=== PATIENT | female | born 1980 | race Caucasian/White ===

== ENCOUNTER → 2016-07-02 | Outpatient (CLI) | payer OTHER ==
[~2016-07-02] MED LIST: B-COTAB18 PO; CLX20 PO; ECHINACEA PO; LORA-741 PO; METH500T37 PO; MISCCAP80 PO; MULT-506 PO; OMEG10007 PO; POLY335019 PO; TRAZ50TA35 PO
== END | disposition home or self-care (01) ==
LOC: C.LABBC 10:44
PROVIDERS: ATTEND Family Medicine
DX: R53.83 Other fatigue (principal)

== ENCOUNTER → 2016-10-22 | Outpatient (CLI) | payer OTHER ==
--- NOTE | 2016-10-22 18:15 | DIAGNOSTIC IMAGING REPORT ---
KEEGAN CLINICAL HISTORY: K59.00 Constipation pain COMPARISON STUDY: No previous studies for comparison. FINDINGS: Mild increase in fecal load throughout the colon. No evidence for fecal impaction. No significant small bowel distention. IMPRESSION: Mild increase in fecal load throughout the colon. A component of fecal stasis may be considered Electronically signed by: Wang Dawson M.D. 10/22/2016 6:13 PM Dictated Date/Time: 10/22/2016 6:13 PM
== END | disposition home or self-care (01) ==
LOC: C.RAD 17:46
PROVIDERS: ATTEND Registered Nurse
DX: K59.00 Constipation, unspecified (principal)

== ENCOUNTER → 2017-08-12 | Outpatient (CLI) | payer OTHER ==
[2017-08-12 16:44] LABS: BASO % 0.3 %; BASO ABS # 0.02 K/uL (0-0.2); EOS % 1.4 %; EOS ABS # 0.08 K/uL (0-0.5); HEMOGLOBIN 13.5 g/dL (12.0-16.0); IG# 0.01 K/uL (0.00-0.02); LYMPH % 30.5 %; LYMPH ABS # 1.76 K/uL (1.2-3.4); MEAN CORPUSCULAR HEMOGLOBIN 32.5 pg (25-34); MEAN CORPUSCULAR HGB CONC 34.6 g/dl (32-36); MEAN PLATELET VOLUME 9.6 fL (7.4-10.4); MONO % 5.2 %; NEUT % 62.4 %; PLATELET COUNT 214 K/uL (130-400); RED CELL DISTRIBUTION WIDTH CV 12.6 % (11.5-14.5); RED CELL DISTRIBUTION WIDTH SD 43.3 fL (36.4-46.3); WHITE BLOOD COUNT 5.77 K/uL (4.8-10.8)
[2017-08-12 17:14] LABS: ALBUMIN 3.5 gm/dl (3.4-5.0); ALKALINE PHOSPHATASE 35 U/L (45-117); ALT/SGPT 13 U/L (12-78); AST/SGOT 14 U/L (15-37); BLOOD UREA NITROGEN 13 mg/dl (7-18); CALCIUM 8.7 mg/dl (8.5-10.1); CARBON DIOXIDE 29 mmol/L (21-32); GLUCOSE 151 mg/dl (70-99); POTASSIUM 3.8 mmol/L (3.5-5.1); SODIUM 136 mmol/L (136-145); TOTAL PROTEIN 7.2 gm/dl (6.4-8.2)
[2017-08-15 16:44] LABS: EBV EARLY ANTIGEN AB < 9.00 U/ML
== END | disposition home or self-care (01) ==
LOC: C.LABBC 13:57
PROVIDERS: ATTEND Physician Assistant Medical
DX: R53.83 Other fatigue (principal); B34.9 Viral infection, unspecified

== ENCOUNTER → 2017-08-19 | Outpatient (CLI) | payer OTHER ==
--- NOTE | 2017-08-27 08:10 | CODING QUERY NO DIAGNOSIS ---
TREATMENT RENDERED WITHOUT A DIAGNOSIS Hyun PA, To promote full compliance with coding requirements relating to patient care, physician participation is requested in all cases of mixer helper uncertainty. Please assist us with providing a diagnosis/symptom for the test(s) below: A diagnosis/symptom was not documented on your Order. A valid diagnosis/symptom is required to bill all insurances. Please remember that we are unable to code a diagnosis of rule out, probable, possible, questionable, or suspected. Tests that require a diagnosis: * GLYCATED HEMOGLOBIN DIAGNOSIS: * HA1C RESULT <7.0% DIAGNOSIS: DATE OF SERVICE: 08/19/17 Provider Signature: Date: Thank you [facility] Information Management Once completed, please kindly fax back to [phone] For questions please call [phone]
== END | disposition home or self-care (01) ==
LOC: C.LABBC 14:44
PROVIDERS: ATTEND Physician Assistant Medical
DX: R50.9 Fever, unspecified (principal); R73.9 Hyperglycemia, unspecified; M54.5 Low back pain; R53.83 Other fatigue

== ENCOUNTER → 2017-08-25 | Outpatient (CLI) | payer OTHER ==
[~2017-08-25] MED LIST changes: +OPTIRAY 320 IV PRN
--- NOTE | 2017-08-25 10:46 | DIAGNOSTIC IMAGING REPORT ---
ABD/PELVIS IV AND ORAL CONT CLINICAL HISTORY: 37 years-old Female presenting with R10.9 Abdominal pain, unspecified abdominal ahgnpkhmU21.09 Chron, constipation. TECHNIQUE: Multidetector CT of the abdomen and pelvis was performed after the administration of oral and intravenous contrast. IV contrast: 94 mL of Optiray 320. A dose lowering technique was used consistent with the principles of ALARA (as low as reasonably achievable). COMPARISON: None. CT DOSE (mGy.cm): The estimated cumulative dose is 271.39 mGy.cm. 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 Lung bases: Lungs and pleural spaces clear. Normal heart size. No pericardial or pleural effusion. Liver: Normal morphology. No liver lesion. Patent hepatic vasculature. Biliary: No intrahepatic or extrahepatic biliary ductal dilatation. Normal gallbladder. Pancreas: Normal. Spleen: Normal. Adrenal glands: Normal. Kidneys and ureters: Normal. No hydronephrosis. Bladder: Normal. Pelvic organs: Uterus and ovaries normal. Bowel: Moderate stool burden throughout the colon from the level of the hepatic flexure to the rectum. The appendix is not visualized though no inflammatory changes evident in the right lower quadrant. No bowel obstruction. Peritoneal cavity: No free fluid or intraperitoneal gas. Lymph nodes: No enlarged lymph nodes in the abdomen or pelvis. Vasculature: Aorta and IVC patent and normal in caliber. Abdominal wall: Normal. Musculoskeletal: Normal. IMPRESSION: 1. Findings consistent with constipation. No acute intra-abdominal pathology. Electronically signed by: Felix Tracy M.D. 08/25/2017 10:45 AM Dictated Date/Time: 08/25/2017 10:39 AM
== END | disposition home or self-care (01) ==
LOC: C.CTS 10:12
PROVIDERS: ATTEND Physician Assistant Medical
DX: K59.09 Other constipation (principal); R50.9 Fever, unspecified; R10.9 Unspecified abdominal pain

== ENCOUNTER 2023-05-14 08:08 | Inpatient (IN) ==
[2023-05-14] MEDS ORDERED: LACTATED RINGER'S 1,000 ML IV PRN (08:19)
[2023-05-14] MEDS ORDERED: OXYTOCIN 30 UNITS/NSS 30 UNITS/500 ML BAG IV PRN ×2 (08:19→14:45)
[2023-05-14] MEDS ORDERED: LIDOCAINE 1% LOCAL 20 ML VIAL INFIL PRN (08:19)
[2023-05-14] MEDS ORDERED: BUPIVACAINE 0.25% PF 30 ML VIAL ONE (08:25)
[2023-05-14] MEDS ORDERED: SODIUM CHLORIDE 0.9% PF INJ 10 ML VIAL ONE (08:25)
[2023-05-14] MEDS ORDERED: ePHEDrine sulfate 50 MG/ML AMP ONE (08:25)
[2023-05-14] MEDS ORDERED: LIDOCAINE 2%/EPINEPHRINE 1:200,000 20 ML PF ONE (08:25)
[2023-05-14] MEDS ORDERED: fentANYL 2 MCG/ML BUPIVacaine 0.125%-NSS 100ML BAG ONE (08:25)
[2023-05-14] MEDS ORDERED: fentaNYL citrate PF 100 MCG/2 ML VIAL ONE (08:25)
--- NOTE | 2023-05-14 08:31 | History & Physical Report ---
Date of Service May 14, 2023 Assessment & Plan (1) Active labor at term: Plan: 43-year-old -0-0-1 at 38 weeks and 2 days of gestation presenting with regular contractions and active labor, Vital signs stable afebrile, GBS negative, heart rate reassuring, Desires epidural for pain, Plan to admit, monitor, labs, epidural for pain and anticipate , All questions were answered. (2) AMA (advanced maternal age) multigravida 35+: (3) Depression affecting in third trimester, antepartum: History of Present Illness Primary Care Provider: Fela Toscano MD Patient is a 43-year-old -0-0-1 at 38 weeks and 2 days of gestation who has been having contractions since last night but she could sleep through them. She woke up this morning around 6:30 AM with more stronger and regular contractions" Ativan send return to ER recommended to cover. She was present with director for with 8 cm dilated cervix and bulging amniotic bag. She denies leakage of fluid or vaginal bleeding. She reports good movements. Her has been uncomplicated except, 1. Rh- 2. AMA, NIPT testing was inconclusive twice and she declined amniocentesis, 3. Anxiety depression on citalopram and trazodone Allergies Allergy/AdvReac Type Severity Reaction Status Date / Time No Known Allergies Allergy Unverified 08/22/15 13:19 Home Medications Medication Instructions Recorded Confirmed Type Citalopram (Celexa *) 40 mg PO HS ##0 07/06/11 History Multivitamin 1 tab PO QAM ##0 07/06/11 History Trazodone Hcl (Trazodone) 50 mg PO HS ##0 07/06/11 History B-COMPLEX VITAMINS (VITAMIN B 1 tab PO QAM ##0 08/09/15 History COMPLEX) ECHINACEA 1 tab PO BID ##0 08/09/15 History Fish Oil ([place]-3) 1 cap PO BID #0 caps 08/09/15 History LORAZEPAM (ATIVAN) 0.5 mg PO BID #0 tabs 08/09/15 History Methocarbamol (Robaxin) 500 mg PO BID #0 tabs 08/09/15 History POLYETHYLENE GLYCOL 3350 (MIRALAX) 17 g PO QPM #255 grams 08/09/15 History PROBIOTIC PRODUCT (PROBIOTIC) 1 tab PO QPM ##0 08/09/15 History Patient History Social History Preferred Language: Citizen Of [place] Communication Ability: Effective Spanish Translator Required: No Beliefs That Will Affect Care: None Current Living Situation: Spouse Current Living Situation Comment: - Carley Vasquez- 3 year old Other Information That Helps Us Care for You: No Assistive Devices: Glasses OB History Full-term on 20[address] [facility] 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 [employer] History No history of STDs, no history of chlamydia, gonorrhea, herpes Review of Systems as per Subjective / HPI Physical Exam Constitutional: WD/WN, vitals as above well developed, well nourished and + acute distress (With contractions) Genitourinary: normal external appearance OB Exam Abdomen: + vertex Manual OB Exam: + cervical dilation 8 cm, + cervical effacement 80% and + station 0 OB Exam Monitor Tracing: + external uterine monitor used and + category I (2) AMA (advanced maternal age) multigravida 35+ Trimester: third trimester Qualified Code(s): O09.523 - Supervision of elderly multigravida, third trimester
[2023-05-14 08:48] LABS: Hematocrit (blood only) 36.2 % (37.0-47.0); Hemoglobin 12.8 g/dl (12.0-16.0); Mean Corpuscular Hemoglobin 31.4 pg (25.0-34.0); Mean Corpuscular Hgb Conc 35.4 g/dL (32.0-36.0); Mean Corpuscular Volume 88.7 fL (80.0-100.0); Mean Platelet Volume 10.1 fL (9.4-12.4); Platelet Count 169 K/uL (130-400); RDW Coefficient of Variation 12.8 % (11.5-14.5); RDW Standard Deviation 41.6 fL (36.4-46.3); Red Blood Count 4.08 M/uL (4.20-5.40); White Blood Count 10.92 K/ul (4.8-10.8)
[2023-05-14] MEDS ORDERED: BUPIVACAINE 0.25% PF 30 ML VIAL EPI PRN (08:51)
[2023-05-14] MEDS ORDERED: SODIUM CHLORIDE 0.9% PF INJ 10 ML VIAL EPI STA (08:51)
[2023-05-14] MEDS ORDERED: NALOXONE HCL 1 MG in SODIUM CHLORIDE 0.9% 1,000 ML IV PRN (08:51)
[2023-05-14] MEDS ORDERED: SODIUM CHLORIDE 0.9% PF INJ 10 ML VIAL EPI PRN (08:51)
[2023-05-14] MEDS ORDERED: ROPIVACAINE 0.5% PF 5 MG/ML 20 ML VIAL EPI PRN (08:51)
[2023-05-14] MEDS ORDERED: fentaNYL citrate PF 100 MCG/2 ML VIAL EPI PRN (08:51)
[2023-05-14] MEDS ORDERED: diphenhydrAMINE 50 MG/ML VIAL IV PRN (08:51)
[2023-05-14] MEDS ORDERED: LIDOCAINE 2%/EPINEPHRINE 1:200,000 20 ML PF EPI STA (08:51)
[2023-05-14] MEDS ORDERED: NALOXONE HCL 0.4 MG/1 ML VIAL/CARP IV PRN (08:51)
[2023-05-14] MEDS ORDERED: fentANYL 2 MCG/ML BUPIVacaine 0.125%-NSS 100ML BAG EPI PRN (08:51)
[2023-05-14] MEDS ORDERED: ePHEDrine sulfate 50 MG/ML AMP IV PRN (08:51)
[2023-05-14] MEDS ORDERED: fentaNYL citrate PF 100 MCG/2 ML VIAL EPI STA (08:51)
[2023-05-14] MEDS ORDERED: BUPIVACAINE 0.25% PF 30 ML VIAL EPI STA (08:51)
[2023-05-14] MEDS ORDERED: NALBUPHINE HCL 5 MG in SYRINGE 0 ML IV PRN (08:51)
[2023-05-14] MEDS ORDERED: LIDOCAINE 2% MPF LOCAL 5 ML VIAL EPI PRN (08:51)
--- NOTE | 2023-05-14 08:51 | Anesthesiology Consultation ---
Date of Service May 14, 2023 Assessment & Plan (1) Encounter for pre-operative examination: Chart Review Chart Review: Patient NOT seen in Pre Admission Testing and Acceptable Risk for Labor Epidural Consults Requested none History Height/Weight Height: 5 ft 5 in Weight: 92.079 kg Allergies Allergy/AdvReac Type Severity Reaction Status Date / Time No Known Allergies Allergy Unverified 08/22/15 13:19 Medications Home Medications Medication Instructions Recorded Confirmed Last Taken Citalopram (Celexa *) 40 mg PO HS ##0 07/06/11 Unknown Multivitamin 1 tab PO QAM ##0 07/06/11 Unknown Trazodone Hcl (Trazodone) 50 mg PO HS ##0 07/06/11 Unknown B-COMPLEX VITAMINS (VITAMIN B 1 tab PO QAM ##0 08/09/15 Unknown COMPLEX) ECHINACEA 1 tab PO BID ##0 08/09/15 Unknown Fish Oil ([place]-3) 1 cap PO BID #0 caps 08/09/15 Unknown LORAZEPAM (ATIVAN) 0.5 mg PO BID #0 tabs 08/09/15 Unknown Methocarbamol (Robaxin) 500 mg PO BID #0 tabs 08/09/15 Unknown POLYETHYLENE GLYCOL 3350 (MIRALAX) 17 g PO QPM #255 grams 08/09/15 Unknown PROBIOTIC PRODUCT (PROBIOTIC) 1 tab PO QPM ##0 08/09/15 Unknown Active Medications Generic Name Dose Route Start Last Admin Trade Name Freq PRN Reason Stop Dose Admin Lactated Ringer's 1,000 mls @ 150 mls/hr 05/14/23 08:19 05/14/23 08:34 Lr IV 05/16/23 08:18 999 mls/hr .[id number] PRN Administration L&D Protocol Protocol Social History Smoking Status: Never smoker Do You Dip or Chew Tobacco: No Hx Alcohol Use: No Hx Substance Use: No Physical Exam Vital Signs Last Vital Signs Temp 97.9 F 05/14/23 08:22 Pulse 88 05/14/23 08:50 Resp 18 05/14/23 08:22 BP 133/95 05/14/23 08:50 Pulse Ox 100 05/14/23 08:45 Testing Laboratory Results 05/14/23 08:29
--- OUTSIDE RECORDS SUMMARY | 2023-05-14 08:57 | External Medical Summary | Summary of Care ---
Author Name Unknown Organization [facility] Address [address] [place] [address] Phone [phone] Care Team Providers Care Print Journalist Name Role Phone Rizwana Colette Rowley DO Primary Care Provider Reason for Visit * Reason Comments Outpatient Testing Encounter Details Date Type Department Care Team (Late st Contact Info) Description 04/16/2023 4:50 PM EST Laboratory Laboratory, [facility] [address] [place] [id number] [facility] [address] [place] [address] Antepartum anemia complicating Allergies No known active allergiesdocumented as of this encounter (statuses as of 04/16/2023) Medications Medication Sig Dispensed Refills Start Date End Date Status OMEGA-3 FISH OIL 1000 MG PO CAPS Take one capsule by mouth twice a day 60 Cap 5 06/08/2013 Active CALTRATE 600+D 600-400 MG-UNIT PO TABS one tablet daily 0 07/24/2013 Active 28-0.8 MG TABS Take by mouth. 0 Active B Complex Vitamins (B COMPLEX 50) TABS Take by mouth. Unsure of dose 0 Active Citalopram Hydrobromide 40 MG Oral Tablet (CeleXA)Indications: Moderate episode of recurrent major depressive disorder (HCC) TAKE ONE TABLET BY MOUTH EVERY DAY 90 Tablet 3 07/13/2022 07/13/2023 Active traZODone HCl 50 MG Oral Tablet (Desyrel)Indications :Primary insomnia TAKE ONE TABLET BY MOUTH EVERY DAY AT BEDTIME 90 Tablet 1 12/16/2022 12/16/2023 Active Potassium 99 MG Oral Tablet Take 1 Tablet by mouth in the morning. 0 Active Magnesium 250 MG Oral Tablet Take 1 Tablet by mouth in the morning. 0 Active Iron-Vitamin C 65-125 MG Oral Tablet (Vitron C)Indications:Antepa rtum anemia complicating Take 1 Tablet by mouth in the morning and 1 Tablet before bedtime. 120 Tablet 1 03/01/2023 Active documented as of this encounter (statuses as of 04/16/2023) Active Problems Problem Noted Date Diagnosed Date Antepartum anemia complicating 023 Overview: Hgb 10.9 at 27 wks - Rx Vitron C BID, recheck CBC in 4 weeks Depression complicating , antepartum Overview: Trazodone and celexa , supervision, high-risk 10/14/2022 AMA (advanced maternal age) multigravida 35+ 08/2022 Overview: Will be 43 years old at time of delivery NST weekly at 38 weeks, deliver by VIRI Last Assessment & Plan: I reviewed the ultrasound. The overall estimated weight is consistent with the 29th percentile for the gestational age and the fetus is in the vertex presentation. The anatomy that was visualized appears unremarkable and the amniotic fluid volume is normal at 14 cm. At this point, there is no clinical indication for return. Moderate episode of recurrent major depressive d isorder 07/23/2020 Rh negative status during 07/06/2019 Overview: Received Rhogam 10/05/22 for bleeding Estimated Date of Delivery Comme nts Yes 05/26/2023 Based on last me nstrual period of 08/19/2022 (Exact Date) documented as of this encounter (statuses as of 04/16/2023) Resolved Problems Problem Noted Date Diagnosed Date Resolved Date Spontaneous vaginal delivery 02/03/2020 01/29/2023 Supervision of high-risk pre gnancy, unspecified trimester 01/19/2020 02/15/2020 Obesity in , antepartum 01/19/2020 01/19/2020 Overview: Class 1 GBS (group B Streptococcus c arrier), +RV culture, currently 01/19/2020 02/15/2020 AMA (advanced maternal age) primigravida 35+ 0 02/15/2020 Overview: 39yoa at NOB Depression with anxiety 06/30/201902/05 Overview: Taking Celexa 40mg daily, Ativan 1mg daily and Trazadone 50mg at HS She reports she has been taking this regimen with management of her Anxiety for 5+ years. She sees psychiatrist in [place] regularly and he approved this regimen for . Advised pt I would like her to taper off Ativan during . Continue Trazadone and Celexa for now. Obesity, Class II, BMI 35-39 .9, isolated (see actual BMI) 11/18/2009 01/19/2020 Overview: Per Obesity Protocol, #19 depression 07/28/2019 documented as of this encounter (statuses as of 04/16/2023) Immunizations Name Administration Dates Next Due COVID-19 mRNA, LNP-s, No Pre serve, 2-Dose Series (Moderna) 10/19/2020,09/21/2020 COVID-19, mRNA, LNP-s, PF, B ooster, 100mcg/0.5mg (Moderna) 06/13/2021 Covid-19, Mrna, Lnp-s, Pf, B ivalent, 30 Mcg, IM, 12 yrs and above (Pfizer) 03/29/2022 MMR - Measles/Mumps/Rubella Vaccine 09/23/2018 SEASONAL INFLUENZA, PF, 6 M & Above, IM , (FLULAVAL or FLUZONE) 03/01/2023,04/30/2021,04/05/2020,2018 Seasonal Influenza, Quadriva lent, No Preserve, IM 03/29/2022 Seasonal Influenza, Split, I IV3, With Preserve, Inj 04/07/2014,06/08/2013,07/17/2010 TD, Preservative Free 06/30/2018 TDAP (age 10 and older)(Boostrix) 03/19/2023,05/2020 TDAP (age 11 and older)(Adacel) 06/27/2008 documented as of this encounter Social History Tobacco Use Types Packs/Day Years Used Date Smoking Tobacco: Never Smokeless Tobacco: Never Alcohol Use Standard Drinks/Week Comments Not Currently 0 (1 standard drink = 0.6 oz pur e alcohol) rarely PHQ-2 Answer Date Recorded PHQ-2 Score 0 06/28/2019 Hunger Vital Sign Answer Date Recorded Within the past 12 months, y ou worried that your food would run out before you got the money to buy more. Never true 12/26/19 23 Within the past 12 months, t he food you bought just didn't last and you didn't have money to get more. Never true 12/25/2022 [place] Depression Scale Answer Date Recorded [place] Depression Scale Total 9 03/01/2023 The thought of harming myself has occurred to me . Never 03/01/2023 Estimated Date of Delivery Comme nts Yes 05/26/2023 Based on last me nstrual period of 08/19/2022 (Exact Date) Sex and Gender Information Value Date Recorded Sex Assigned at Female 09/23/2022 8:45 PM EDT Gender Identity Female 09/23/2022 8:45 PM EDT Sexual Orientation Straight 09/23/2022 8: 45 PM EDT Job Start Date Occupation Industry Not on file Not on file Not on file documented as of this encounter Plan of Treatment Upcoming Encounters Date Type Department Care Team (Late st Contact Info) Description 04/28/2023 3:15 PM EST Office [facility] [address] [place] [address] Lillie Buchanan CRNP [address] [place] [address] 05/07/2023 4:30 PM EST Office Visit Gynecology/Obstetrics [facility] [address] [place] [address] Danette Alaniz PA-C [address] [place] [address] 05/13/2023 2:15 PM EST Office Visit Gynecology/Obstetrics [facility] [address] [place] [address] Lillie Buchanan CRNP [address] [place] [address] 05/21/2023 4:30 PM EST Office Visit Gynecology/Obstetrics [facility] [address] [place] [address] Danette Alaniz PA-C [address] [place] [address] 06/18/2023 2:40 PM EST Office Visit Family Practice [facility] [address] [facility], [place] [address] Colette Wagoner DO [address] [place] [address] Pending Results Name Type Priority Associated Diagnoses Date /Time CBC WITH WBC DIFFERENTIAL AND ANEMIA REFLEX WORKUP Lab Routine Antepartum anemia complicating 04/16/2023 4:45 PM EST ANEMIA CBC Lab Routine Antepartum anemia complicating 04/16/2023 4:45 PM EST DIFFERENTIAL, AUTOMATED Lab Routine Antepartum anemia complicating 04/16/2023 4:45 PM EST ANEMIA REFLEX CHEMISTRY HOLD Lab Routine Antepartum anemia complicating 04/16/2023 4:45 PM EST Health Maintenance Due Date Last Done Comments Hepatitis B (1 of 3 - 3-dose series) 1981 Depression Screening 06/20/2020 06/20/2019 Mammogram 12/18/2022 12/18/2021 COVID-19 Vaccine ( season) 2023 03/29/2022, 06/13/2021, 10/19/2020, Additional history exists Diabetes Screening 06/22/2025 06/22/2022, 0 06/08/2013, 03/23/2012, Additional history exists Pap Smear 10/07/2025 10/07/2022, 06/08, 03/24/2012, Additional history exists Lipid Panel 06/22/2027 06/22/2022, 07/2013, 11/19/2009 Cervical Cancer Screening 10/08/2027 HPV/Co-Test 10/08/2027 10/07/2022 DTaP,Tdap,and Td Vaccines (5 - Td or Tdap) 03/19/2033 03/19/2023, 11/17/2019, 06/30/2018, Additional history exists Influenza Vaccine (FLU shot) Completed , 03/29/2022, 04/30/2021, Additional history exists GARDASIL-HPV IMMUNIZATION SERIES Aged Out No longer eligible based on patient's age to complete this topic MENINGOCOCCAL (MENACTRA/MENVEO) Aged Out No longer eligible based on patient's age to complete this topic Pneumococcal Vaccine: Pediatrics (0 to 5 Years) and At-Risk Patients (6 to 64 Years) Aged Out No longer eligible based on patient's age to complete this topic documented as of this encounter Medical Devices Not on filedocumented as of this encounter Visit Diagnoses Diagnosis Antepartum anemia complicating Anemia, antepartum documented in this encounter Advance Directives Documents on File Type Date Recorded 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 Care Teams Print Journalist Relationship Specialty Start Date End Date Colette Wagoner DO [address] [place] [address] PCP - General Family Medicine 11/25/21 documented as of this encounter
--- OUTSIDE RECORDS SUMMARY | 2023-05-14 08:57 | External Medical Summary | Summary of Care ---
Author Name Unknown Organization [facility] Address [address] [place] [address] Phone [phone] Care Team Providers Care Manager Work Name Role Phone Rizwana Colette Rowley DO Primary Care Provider Reason for Visit * Reason Comments Non Stress Test Encounter Details Date Type Department Care Team (Late st Contact Info) Description 05/13/2023 1:45 PM EST Office Visit Gynecology/Obstetric s [facility] [address] [place] [address] Lillie Buchanan CRNP [address] [place] [address] [place], Non Stress Tests [facility] [address] [place] [address] Multigravida of advanced maternal age in third trimester*; Rh negative, antepartum; Supervision of high risk in third trimester; Depression complicating , antepartum; Antepartum anemia complicating Allergies No known active allergiesdocumented as of this encounter (statuses as of 05/13/2023) Medications Medication Sig Dispensed Refills Start Date [...] MOUTH EVERY DAY 90 Tablet 3 07/13/2022 08/04/2023 Active traZODone HCl 50 MG Oral Tablet [...] as of this encounter (statuses as of 05/13/2023) Active Problems Problem Noted Date Diagnosed Date [...] as of this encounter (statuses as of 05/13/2023) Resolved Problems Problem Noted Date Diagnosed Date [...] for 5+ years. She sees psychiatrist in [place] regularly and he approved this regimen for . Advised pt I would like her to taper off Ativan during . Continue Trazadone and Celexa for now. Obesity, Class II, BMI 35-39 .9, isolated (see actual BMI) 11/18/2009 01/19/2020 Overview: Per Obesity Protocol, #19 depression 07/28/2019 documented as of this encounter (statuses as of 05/13/2023) Immunizations Name Administration Dates Next Due COVID-19 mRNA, LNP-s, No Pre serve, 2-Dose Series (Moderna) 10/19/2020,09/21/2020 COVID-19, MRNA-LNP, 23-24, P F, 30 MCG/0.3 mL, 12 YRS AND ABOVE, IM (PFIZER-Comirnat) 05/08/2023 COVID-19, mRNA, LNP-s, PF, B ooster, 100mcg/0.5mg (Moderna) 06/13/2021 Covid-19, Mrna, Lnp-s, Pf, B ivalent, 30 Mcg, IM, 12 yrs and above (Pfizer) 05/08/2023,03/29/2022 MMR - Measles/Mumps/Rubella Vaccine 09/23/2018 SEASONAL INFLUENZA, [...] money to get more. Never true 12/25/2022 [place] Depression Scale Answer Date Recorded [place] Depression Scale Total 9 03/01/2023 The thought [...] on file documented as of this encounter Last Filed Vital Signs Vital Sign Reading Time Taken Comments Blood Pressure 118/70 05/13/2023 1:41 PM EST Pulse - - Temperature - - Respiratory Rate - - Oxygen Saturation - - Inhaled Oxygen Concentration - - Weight 91.6 kg (202 lb) 05/13/2023 1:41 PM EST Height 165.1 cm (5' 5") 05/13/2023 1:41 PM EST Body Mass Index 33.61 05/13/2023 1:41 PM EST documented in this encounter Progress Notes * Lillie Buchanan CRNP - 05/13/2023 2:06 PM EST 38w1d No concerns. Baby is active. No bleeding or LOF. IOL 05/19. ASSESSMENT assessment with Non-stress Test completed on 05/13/2023 at 38.1 weeks gestation for indicationof advanced maternal age heart baseline: 125 bpm Variability: Moderate Decelerations: absent Accelerations: present Contractions: None NST start time: 1506 NST stop time: 1527 NST strip reviewed, interpreted, and approved by OB provider, CELY Coley . NST strip stored in clinic storage file Bench Chemist Documentation Provider requested calibration engineer. Name of calibration engineer: Catherine documented in this encounter Plan of Treatment Upcoming Encounters Date Type Department Care Team (Late st Contact Info) Description 05/20/2023 8:30 AM EST Office Visit Gynecology/Obstetrics [facility] [address] [place] [address] BackerSavannah CRNP [address] [place] [address] Rupal Niño Stress Tests [facility] [address] [place] [address] 06/18/2023 2:40 PM EST Office Visit Family Practice [facility] [place] [address] [facility] [address] Colette Wagoner, DO [address] [place], [place] [address] Health Maintenance Due Date Last Done Comments Hepatitis B (1 of 3 - 3-dose series) 1980 Depression Screening 06/20/2020 06/20/2019 Mammogram 12/18/2022 12/18/2021 COVID-19 Vaccine ( season) 2023 05/08/2023, 05/08/2023, 03/29/2022, Additional history exists Diabetes Screening 06/22/2025 06/22/2022, [...] as of this encounter Visit Diagnoses Diagnosis Multigravida of advanced maternal age in third trimester- Primary Rh negative, antepartum Rhesus isoimmunization affecting management of mother, antepartum condition Supervision of high risk in third trimester Unspecified high-risk Depression complicating , antepartum Mental disorders of mother, antepartum Antepartum anemia complicating Anemia, antepartum documented in this encounter Advance Directives Documents on File Type Date Recorded 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 Care Teams Manager Work Relationship Specialty Start Date End Date Colette Wagoner DO [address] [place] [address] PCP - General Family Medicine 11/25/21 documented as of this encounter
--- OUTSIDE RECORDS SUMMARY | 2023-05-14 08:57 | External Medical Summary | Summary of Care ---
Author Name Unknown Organization [facility] Address [address] [place] [address] Phone [phone] Care Team Providers Care Machine Stuffer Name Role Phone Colette Wagoner DO Primary Care Provider Reason for Visit * Reason Comments Return Visit Encounter Details Date Type Department Care Team (Late st Contact Info) Description 04/28/2023 3:15 PM EST [facility] [address] [place] [address] Lillie Buchanan CRNP [address] [place] [address] Multigravida of advanced maternal age in third trimester*; Rh negative, antepartum; Supervision of high risk in third trimester; Depression complicating , antepartum; Antepartum anemia complicating Allergies No known active allergiesdocumented as of this encounter (statuses as of 04/28/2023) Medications Medication Sig Dispensed Refills Start Date [...] as of this encounter (statuses as of 04/28/2023) Active Problems Problem Noted Date Diagnosed Date [...] Comme nts Yes 05/26/2023 Based on last nd nstrual period of 08/19/2022 (Exact Date) documented as of this encounter (statuses as of 04/28/2023) Resolved Problems Problem Noted Date Diagnosed Date [...] for 5+ years. She sees psychiatrist in [place] regularly and he approved this regimen for . Advised pt I would like her to taper off Ativan during . Continue Trazadone and Celexa for now. Obesity, Class II, BMI 35-39 .9, isolated (see actual BMI) 11/18/2009 01/19/2020 Overview: Per Obesity Protocol, #19 depression 07/28/2019 documented as of this encounter (statuses as of 04/28/2023) Immunizations Name Administration Dates Next Due COVID-19 mRNA, LNP-s, No Pre serve, 2-Dose Series (Moderna) 10/19/2020,09/21/2020 COVID-19, mRNA, LNP-s, PF, B ooster, 100mcg/0.5mg (Moderna) 06/13/2021 Covid-19, Mrna, Lnp-s, Pf, B ivalent, 30 Mcg, IM, 12 yrs and above ([employer]) 03/29/2022 MMR - Measles/Mumps/Rubella Vaccine 09/23/2018 SEASONAL [...] money to get more. Never true 12/25/2022 [place] Depression Scale Answer Date Recorded [place] Depression Scale Total 9 03/01/2023 The thought [...] Sign Reading Time Taken Comments Blood Pressure 120/82 04/28/2023 3:04 PM EST Pulse - - Temperature - - Respiratory Rate - - Oxygen Saturation - - Inhaled Oxygen Concentration - - Weight 91.3 kg (201 lb 3.2 oz) 04/28/2023 3:04 P M EST Height 165.1 cm (5' 5") 04/28/2023 3:04 PM EST Body Mass Index 33.48 04/28/2023 3:04 PM EST documented in this encounter Progress Notes * Lillie Buchanan CRNP - 04/28/2023 3:11 PM EST 36w0d Complaints: none Feeling well overall. Good FM. No contractions, bleeding, or LOF. GBS today. Ibm Mainframe Systems Programmer Documentation Provider requested superintendent building. Name of superintendent building: Catherine To begin NSTs at 38w. Delivery by EDC. CELY Coley * Catherine Garcia LPN - 04/28/2023 3:10 PM EST 36w0d Pt denies any concerns, GBS today documented in this encounter Plan of Treatment Upcoming Encounters Date Type Department Care Team (Late st Contact Info) Description 05/07/2023 4:30 PM EST Office Visit Gynecology/Obstetrics [facility] [address] [place] [address] Danette Alaniz PA-C [address] [place] [address] 05/13/2023 1:45 PM EST Office Visit Gynecology/Obstetrics [facility] [address] [place] [address] Lillie Buchanan CRNP [address] [place] [address] Rupal Niño Stress Tests Shadia [address] [place] [address] 05/20/2023 8:30 AM EST Office Visit Gynecology/Obstetrics Carin [facility] [address] [place] [address] Savannah Mcelroy CRNP [address] [place] [address] Rupal Niño Stress Tests Shadia [address] [place] [address] 06/18/2023 2:40 PM EST [facility] [place] [address] [facility] [place] [address] Colette Wagoner, [address] [facility] [place] [address] Pending Results Name Type Priority Associated Diagnoses Date /Time GROUP B STREP CULTURE/PCR Lab Routine Multigravida of advanced maternal age in third trimester 04/28/2023 3:11 PM EST Health Maintenance Due Date Last [...] Documents on File Type Date Recorded Patient Tape Control Skin Or Spar Mill Operator Expl anation Power of Insurance Policy Issue Clerk 12/06/2019 POWER OF A TTORNEY Latest Code Status on File Code Status Date Activated Date Inactivated Comments Full Code 02/01/2020 3:24 AM 02/03/2020 6:07 PM This order reflects the patients wishes and were consensually agreed upon. Care Teams Machine Stuffer Relationship Specialty Start Date End Date Colette Wagoner DO [address] [place] [address] PCP - General Family Medicine 11/25/21 documented as of this encounter
--- OUTSIDE RECORDS SUMMARY | 2023-05-14 08:57 | External Medical Summary ---
Author Name Unknown Address Unknown Organization K01:[facility] - [facility] [address] [place] [address] Laboratory Report Ordering Provider Test Date Status KENN VERA 04/28/2023 15:11:55 Final Observation Date Value Abnormality Reference (Units ) Status Streptococcus agalactiae DNA [Presence] in Specimen by VIRAJ with probe detection 04/28/2023 15:11:55 Negative Negative Final No Group B Streptococcus det ected by culture-enhanced PCR (amplified probe).
The collection of vaginal/rectal swab specimen combinations (FDA approved specimen type) is optimal for the detection of Group B Streptococcus. Single source collection (vaginal only or rectal only) or alternate specimen sources may lead to false negative results. Performing Location [facility] [address] [place] [address]
--- OUTSIDE RECORDS SUMMARY | 2023-05-14 08:57 | External Medical Summary | Summary of Care ---
Author Name Unknown Organization [facility] Address [address] [place] [address] Phone [phone] Care Team Providers Care Project Designer Name Role Phone Rizwana Colette Rowley DO Primary Care Provider Reason for Visit * Reason Onset Date Comments Test Results 12/02/2022 Encounter Details Date Type Department Care Team (Late st Contact Info) Description 12/02/2022 Telephone Gynecology/Obstetrics [facility] [address] [place] [address] Lillie Buchanan CRNP [address] [facility] [place] [address] Test Results Allergies No known active allergiesdocumented as of this encounter (statuses as of 05/03/2023) Medications Medication Sig Dispensed Refills Start Date End Date Status OMEGA-3 FISH OIL 1000 MG PO CAPS Take one capsule by mouth twice a day 60 Cap 5 06/08/2013 Active CALTRATE 600+D 600-400 MG-UNIT PO TABS one tablet daily 0 07/24/2013 Act urban 28-0.8 MG TABS Take by mouth. 0 Active B Complex Vitamins (B COMPLEX 50) TABS Take by mouth. Unsure of dose 0 Active documented as of this encounter (statuses as of 05/03/2023) Active Problems Problem Noted Date Diagnosed Date [...] as of this encounter (statuses as of 05/03/2023) Resolved Problems Problem Noted Date Diagnosed Date Resolved Date Spontaneous vaginal delivery 02/03/2020 01/29/2023 Supervision of high-risk pre gnancy, unspecified trimester 01/19/2020 02/15/2020 Obesity in , antepartum 01/19/2020 01/19/2020 Overview: Class 1 GBS (group B Streptococcus c ning), +RV culture, currently 01/19/2020 02/15/2020 AMA (advanced maternal age) primigravida 35+ 0 02/15/2020 Overview: 39yoa at NOB Depression with anxiety 06/30/2019 09 Overview: Taking Celexa 40mg daily, Ativan 1mg daily and Trazadone 50mg at HS She reports she has been taking this regimen with management of her Anxiety for 5+ years. She sees psychiatrist in [place] regularly and he approved this regimen for . Advised pt I would like her to taper off Ativan during . Continue Trazadone and Celexa for now. Obesity, Class II, BMI 35-39 .9, isolated (see actual BMI) 11/18/2009 01/19/2020 Overview: Per Obesity Protocol, #19 depression 07/28/2019 documented as of this encounter (statuses as of 05/03/2023) Immunizations Name Administration Dates Next Due COVID-19 mRNA, LNP-s, No Pre serve, 2-Dose Series (Moderna) 10/19/2020,09/21/2020 COVID-19, mRNA, LNP-s, PF, B ooster, 100mcg/0.5mg (Moderna) 06/13/2021 Covid-19, Mrna, Lnp-s, Pf, B ivalent, 30 Mcg, IM, 12 yrs and above (Pfizer) 03/29/2022 MMR - Measles/Mumps/Rubella Vaccine 09/23/2018 SEASONAL INFLUENZA, PF, 6 M & Above, IM , (FLULAVAL or FLUZONE) 04/30/2021,04/05/2020,05/03/2019 Seasonal Influenza, Quadriva lent, No Preserve, IM 03/29/2022 Seasonal Influenza, Split, I IV3, With Preserve, Inj 04/07/2014,06/08/2013,07/17/2010 TD, Preservative Free 06/30/2018 TDAP (age 10 and older)(Boostrix) 11/17/2019 TDAP (age 11 and older)(Adacel) 06/27/2008 documented [...] money to get more. Never true 12/25/2022 [place] Depression Scale Answer Date Recorded [place] Depression Scale Total 9 03/01/2023 The thought [...] on file documented as of this encounter Miscellaneous Notes * Telephone Encounter - Lillie Buchanan CRNP - 12/02/2022 12:52 PM EDT Please notify pt that vaginal culture was negative for infections. If still having itching/irritation, she can try Vagisil. documented in this encounter Plan of Treatment Upcoming Encounters Date Type Department Care Team (Late st Contact Info) Description 05/07/2023 4:30 PM EST Office Visit Gynecology/Obstetrics [facility]in [facility] [address] [place] [address] Danette Alaniz PA-C [address] [place] [address] 05/13/2023 1:45 PM EST Office Visit Gynecology/Obstetrics Carin [facility] [address] [place] [address] Lillie Buchanan CRNP [address] [place] [address] Rupal Niño Stress Tests Shadia [address] [place] [address] 05/20/2023 8:30 AM EST Office Visit Gynecology/Obstetrics Carin Niño [address] [place] [address] Backer, CELY Kamara [address] [place] [address] [place], Non Stress Tests Shadia [address] [place] [address] 06/18/2023 2:40 PM EST Office Visit Family Practice [facility] [place] [address] [facility] [place] [address] Colette Wagoner, [address] [facility] [place] [address] Health Maintenance Due Date Last Done Comments Hepatitis B (1 of 3 - 3-dose series) 1980 Depression Screening 06/20/2020 06/20/2019 Mammogram 12/18/2022 12/18/2021 COVID-19 Vaccine (2022- season) 2023 03/29/2022, 06/13/2021, 10/19/2020, Additional history [...] Not on filedocumented as of this encounter Advance Directives Documents on File Type Date Recorded Patient Business Transformation Analyst Expl anation Power of Gut Dropper 12/06/2019 POWER OF A TTORNEY Latest Code Status on File Code Status Date Activated Date Inactivated Comments Full Code 02/01/2020 3:24 AM 02/03/2020 6:07 PM This order reflects the patients wishes and were consensually agreed upon. Care Teams Project Designer Relationship Specialty Start Date End Date Colette Wagoner DO [address] [place] [address] PCP - General Family Medicine 11/25/21 documented as of this encounter
--- OUTSIDE RECORDS SUMMARY | 2023-05-14 08:57 | External Medical Summary | Summary of Care ---
Author Name Unknown Organization [facility] Address [address] [place] [address] Phone [phone] Care Team Providers Care Ladle Operator Name Role Phone Colette Wagoner DO Primary Care Provider Reason for Visit * Reason Comments Return Visit Encounter Details Date Type Department Care Team (Late st Contact Info) Description 05/07/2023 4:30 PM EST Office Visit Gynecology/Obstetric s [place] [facility] [address] [place] [address] Danette Alaniz PA-C [address] [place] [address] Supervision of high risk in third trimester*; Rh negative status during in third trimester; Multigravida of advanced maternal age in third trimester; Depression complicating , antepartum; Antepartum anemia complicating Allergies No known active allergiesdocumented as of this encounter (statuses as of 05/07/2023) Medications Medication Sig Dispensed Refills Start Date [...] as of this encounter (statuses as of 05/07/2023) Active Problems Problem Noted Date Diagnosed Date [...] as of this encounter (statuses as of 05/07/2023) Resolved Problems Problem Noted Date Diagnosed Date [...] for 5+ years. She sees psychiatrist in [place] regularly and he approved this regimen for . Advised pt I would like her to taper off Ativan during . Continue Trazadone and Celexa for now. Obesity, Class II, BMI 35-39 .9, isolated (see actual BMI) 11/18/2009 01/19/2020 Overview: Per Obesity Protocol, #19 depression 07/28/2019 documented as of this encounter (statuses as of 05/07/2023) Immunizations Name Administration Dates Next Due COVID-19 mRNA, LNP-s, No Pre serve, 2-Dose Series (Moderna) 10/19/2020,09/21/2020 COVID-19, mRNA, LNP-s, PF, B ooster, 100mcg/0.5mg (Moderna) 06/13/2021 Covid-19, Mrna, Lnp-s, Pf, B ivalent, 30 Mcg, IM, 12 yrs and above ([employer]) 03/29/2022 MMR - Measles/Mumps/Rubella Vaccine 09/23/2018 SEASONAL [...] money to get more. Never true 12/25/2022 [place] Depression Scale Answer Date Recorded [place] Depression Scale Total 9 03/01/2023 The thought [...] Sign Reading Time Taken Comments Blood Pressure 118/78 05/07/2023 4:24 PM EST Pulse - - Temperature - - Respiratory Rate - - Oxygen Saturation - - Inhaled Oxygen Concentration - - Weight 92.1 kg (203 lb) 05/07/2023 4:24 PM EST Height 165.1 cm (5' 5") 05/07/2023 4:24 PM EST Body Mass Index 33.78 05/07/2023 4:24 PM EST documented in this encounter Progress Notes * Danette Alaniz PA-C - 05/07/2023 4:31 PM EST 37w2d Denies complaints. Good FM. Denies LOF, bleeding, contractions. Reports only BH. No timing or regularity. Scheduled for IOL on 05/19/2023, delivery by EDC recommended given AMA. Labor precautions reviewed. To start NSTs at 38 weeks. RTC in 1 week Danette Alaniz PA-C * Radha Turcios LPN - 05/07/2023 4:28 PM EST 37w2d NST starting next week. Denies concerns. documented in this encounter Plan of Treatment Upcoming Encounters Date Type Department Care Team (Late st Contact Info) Description 05/13/2023 1:45 PM EST Office Visit Gynecology/Obstetrics Carin Niño [address] [place] [address] Lillie Buchanan CRNP [address] [place] [address] [place] Non Stress Tests Shadia [address] [place] [address] 05/20/2023 8:30 AM EST Office Visit Gynecology/Obstetrics Carin Niño [address] [place] [address] Savannah Mcelroy CRNP [address] [place] [address] [place], Non Stress Tests Shadia [address] [place] [address] 06/18/2023 2:40 PM EST Office Visit Family Practice [facility] [place] [address] [facility] [place] [address] [place], [address] [place] [address] Health Maintenance Due Date Last Done Comments [...] as of this encounter Visit Diagnoses Diagnosis Supervision of high risk in third trimester- Primary Unspecified high-risk Rh negative status during in third trimester Multigravida of advanced maternal age in third trimester Depression complicating , antepartum Mental disorders of mother, antepartum Antepartum anemia complicating Anemia, antepartum documented in this encounter Advance Directives Documents on File Type Date Recorded Patient Personal Banking Officer Expl anation Power of Brick Maker 12/06/2019 POWER OF A TTORNEY Latest Code Status on File Code Status Date Activated Date Inactivated Comments Full Code 02/01/2020 3:24 AM 02/03/2020 6:07 PM This order reflects the patients wishes and were consensually agreed upon. Care Teams Ladle Operator Relationship Specialty Start Date End Date Colette Wagoner DO [address] [place] [address] PCP - General Family Medicine 11/25/21 documented as of this encounter
--- OUTSIDE RECORDS SUMMARY | 2023-05-14 08:57 | External Medical Summary | Summary of Care ---
Author Name Unknown Organization [facility] Address [address] [place] [address] Phone [phone] Care Team Providers Care Computer Hardware Designer Name Role Phone Colette Wagoner DO Primary Care Provider Reason for Visit * Reason Onset Date Comments Immunizations 05/10/2023 Encounter Details Date Type Department Care Team (Late st Contact Info) Description 05/10/2023 Telephone Family Practice [facility] [address] [place] [address] Colette Wagoner DO [address] [place] [address] Immunizations Allergies No known active allergiesdocumented as of this encounter (statuses as of 05/10/2023) Medications Medication Sig Dispensed Refills Start Date [...] as of this encounter (statuses as of 05/10/2023) Active Problems Problem Noted Date Diagnosed Date [...] as of this encounter (statuses as of 05/10/2023) Resolved Problems Problem Noted Date Diagnosed Date [...] for 5+ years. She sees psychiatrist in [place] regularly and he approved this regimen for . Advised pt I would like her to taper off Ativan during . Continue Trazadone and Celexa for now. Obesity, Class II, BMI 35-39 .9, isolated (see actual BMI) 11/18/2009 01/19/2020 Overview: Per Obesity Protocol, #19 depression 07/28/2019 documented as of this encounter (statuses as of 05/10/2023) Immunizations Name Administration Dates Next Due COVID-19 [...] money to get more. Never true 12/25/2022 [place] Depression Scale Answer Date Recorded [place] Depression Scale Total 9 03/01/2023 The thought [...] Gynecology/Obstetrics Carin Niño [address] [place] [address] Lillie Buchanan CRNP [address] [place] [address] Rupal Niño Stress Tests Shadia [address] [place] [address] 05/20/2023 8:30 AM EST Office Visit Gynecology/Obstetrics Carin Niño [address] [place] [address] [place], CELY Kamara [address] [place] [address] [place], Non Stress Tests Shadia [address] [place] [address] 06/18/2023 2:40 PM EST Office Visit Family Practice [facility] [address] [facility] [place] [address] Colette Wagoner, DO [address] [facility] [place] [address] Health Maintenance Due Date Last Done Comments Hepatitis B (1 of 3 - 3-dose series) 1980 Depression Screening 06/20/2020 06/20/2019 Mammogram 12/18/2022 12/18/2021 COVID-19 Vaccine ( season) 2023 05/08/2023, 03/29/2022, 06/13/2021, Additional history exists Diabetes Screening 06/22/2025 06/22/2022, [...] Documents on File Type Date Recorded Patient Manager International Expl anation Power of Carpenter'S Assistant 12/06/2019 POWER OF A TTORNEY Latest Code Status on File Code Status Date Activated Date Inactivated Comments Full Code 02/01/2020 3:24 AM 02/03/2020 6:07 PM This order reflects the patients wishes and were consensually agreed upon. Care Teams Computer Hardware Designer Relationship Specialty Start Date End Date Colette Wagoner DO [address] [place] [address] PCP - General Family Medicine 11/25/21 documented as of this encounter
--- OUTSIDE RECORDS SUMMARY | 2023-05-14 08:58 | External Medical Summary | Summary of Care ---
Author Name Unknown Organization [facility] Address [address] [place] [address] Phone [phone] Care Team Providers Care Early Childhood Associate Name Role Phone Colette Wagoner DO Primary Care Provider Reason for Visit * Reason Comments Outpatient Testing Encounter Details Date Type Department Care Team Description 03/01/2023 Laboratory Laboratory, [facility] [address] [place] [id number] [facility] [address] [place] [address] Supervision of high risk in second trimester; Rh negative status during in second trimester Allergies No known active allergiesdocumented as of this encounter (statuses as of 03/01/2023) Medications Medication Sig Dispensed Refills Start Date [...] Active Citalopram Hydrobromide 40 MG Oral Tablet (CeleXA)Indications:M oderate episode of recurrent major depressive disorder (HCC) TAKE ONE TABLET BY MOUTH EVERY DAY 90 Tablet 3 07/13/2022 07/13/2023 Active traZODone HCl 50 MG Oral Tablet (Desyrel)Indications: Primary insomnia TAKE ONE TABLET BY MOUTH EVERY DAY AT BEDTIME 90 Tablet 1 12/16/2022 12/16/2023 Active Potassium 99 MG Oral Tablet Take 1 Tablet by mouth in the morning. 0 Active Magnesium 250 MG Oral Tablet Take 1 Tablet by mouth in the morning. 0 Active documented as of this encounter (statuses as of 03/01/2023) Active Problems Problem Noted Date Depression complicating , antep artum 01/29/2023 Overview: Trazodone and celexa , supervision, high-risk 2022 AMA (advanced maternal age) multigravida 35+ 10/07/2022 Overview: Will be 43 years old at time of delivery NST weekly at 38 weeks, deliver by VIRI Last Assessment & Plan: I reviewed the ultrasound with her. The anatomy that was visualized appears unremarkable and the biometry is appropriate for the gestational age. Amniotic fluid volume is subjectively normal. I reviewed her noninvasive screening results from November 03 and December 01. Both of those returned as low fraction. She is received genetic counseling about these results and what they mean. At this point, she is not interested pursuing any further testing, either screening or diagnostic. We will bring her back at 30 to 32 weeks of gestation for an evaluation of growth. Moderate episode of recurrent major depr essive disorder 07/23/2020 Rh negative status during 06/09 Overview: Received Rhogam 10/05/22 for bleeding Estimated Date of Delivery Comme nts Yes 05/26/2023 Based on last me nstrual period of 08/19/2022 (Exact Date) documented as of this encounter (statuses as of 03/01/2023) Resolved Problems Problem Noted Date Resolved Date Spontaneous vaginal delivery 02/03/2020 Supervision of high-risk , unspecified trimester 01/19/2020 02/15/2020 Obesity in , antepartum 01/19/2020 01/19/2020 Overview: Class 1 GBS (group B Streptococcus c arrier), +RV culture, currently 01/19/2020 02/15/2020 AMA (advanced maternal age) primigravida 35+ 02/15/2020 Overview: 39yoa at NOB Depression with anxiety 06/30/2019 02/15/20 20 Overview: Taking Celexa 40mg daily, Ativan 1mg daily and Trazadone 50mg at HS She reports she has been taking this regimen with management of her Anxiety for 5+ years. She sees psychiatrist in [place] regularly and he approved this regimen for . Advised pt I would like her to taper off Ativan during . Continue Trazadone and Celexa for now. Obesity, Class II, BMI 35-39.9, isolated (see ac tual BMI) 11/18/2009 01/19/2020 Overview: Per Obesity Protocol, #19 depression 07/28/2019 documented as of this encounter (statuses as of 03/01/2023) Immunizations Name Administration Dates Next Due COVID-19 mRNA, LNP-s, No Pre serve, 2-Dose Series (Moderna) 10/19/2020,09/21/2020 COVID-19, mRNA, LNP-s, PF, B ooster, 100mcg/0.5mg (Moderna) 06/13/2021 Covid-19, Mrna, Lnp-s, Pf, B ivalent, 30 Mcg, IM, 12 yrs and above (Pfizer) 03/29/2022 MMR - Measles/Mumps/Rubella Vaccine 09/23/2018 Seasonal Influenza, PF, 6 mo ns & Above, IM , (Flulaval) 03/01/2023,04/30/2021,04/05/2020,2018 Seasonal Influenza, Quadriva lent, No Preserve, [...] = 0.6 oz pur e alcohol) rarely Food Insecurity Answer Date Recorded Within the past 12 months, y ou worried that your food would run out before you got money to buy more. Never true 12/25/2022 Within the past 12 months, t he food you bought just didn't last and you didn't have money to get more. Never true 12/25/2022 Estimated Date of Delivery Comme nts Yes 05/26/2023 Based on last me nstrual period of 08/19/2022 (Exact Date) Sex Assigned at Date Recorded Female 09/23/2022 8:45 PM E DT Job Start Date Occupation Industry Not on file Not on file Not on file documented as of this encounter Plan of Treatment Upcoming Encounters Date Type Specialty Care Team Description 03/19/2023 Office Visit Gynecology Obstetrics Rocky Bailey MD [address] [place] [phone] 03/25/2023 Imaging Radiology 03/25/2023 Office Visit Maternal Medicine Krishna Palafox MD [address] [place] [address] 04/02/2023 Office Visit Gynecology Obstetrics Savannah Mcelroy CRNP [address] [place] [address] 04/16/2023 Office Visit Gynecology Obstetrics Danette Alaniz PA-C [address] [place] [address] 04/28/2023 Office Visit Gynecology Obstetrics Lillie Buchanan CRNP [address] [place] [address] 05/07/2023 Office Visit Gynecology Obstetrics Danette Alaniz PA-C [address] [place] [address] 05/13/2023 Office Visit Gynecology Obstetrics Lillie Buchanan CRNP [address] [place] [address] 05/21/2023 Office Visit Gynecology Obstetrics Danette Alaniz PA-C [address] [place] [address] 06/18/2023 Office Visit Family Medicine Colette Wagoner, DO [address] [place] [address] Pending Results Name Type Priority Associated Diagnoses Date /Time GESTATIONAL GLUCOSE TOLERANCE, 3 HOUR Lab Routine Supervision of high risk in second trimester 03/01/2023 7:58 AM EDT TYPE AND SCREEN Lab Routine Rh negative status during in second trimester 03/01/2023 7:58 AM EDT CBC WITH WBC DIFFERENTIAL AND ANEMIA REFLEX WORKUP Lab Routine Supervision of high risk in second trimester 03/01/2023 7:58 AM EDT SYPHILIS ANTIBODY SCREEN WITH REFLEX TO RPR Lab Routine Supervision of high risk in second trimester 03/01/2023 7:58 AM EDT 100-G GESTATIONAL GLUCOSE, FASTING Lab Routine Supervision of high risk in second trimester 03/01/2023 7:58 AM EDT ANEMIA CBC Lab Routine Supervision of high risk in second trimester 03/01/2023 7:58 AM EDT DIFFERENTIAL, AUTOMATED Lab Routine Supervision of high risk in second trimester 03/01/2023 7:58 AM EDT ANEMIA REFLEX CHEMISTRY HOLD Lab Routine Supervision of high risk in second trimester 03/01/2023 7:58 AM EDT SYPHILIS ANTIBODY SCREEN Lab Routine Supervision of high risk in second trimester 03/01/2023 7:58 AM EDT 100-G GESTATIONAL GLUCOSE, 1 HOUR Lab Routine Supervision of high risk in second trimester 03/01/2023 8:55 AM EDT Scheduled Orders Name Type Priority Associated Diagnoses Orde r Schedule 100-G GESTATIONAL GLUCOSE, 2 HOUR Lab Routine Supervision of high risk in second trimester Ordered: 03/01/2023 Health Maintenance Due Date Last Done Comments Hepatitis B (1 of 3 - 3-dose series) 1981 Depression Screening 06/20/2020 06/20/2019 Mammogram 12/18/2022 12/18/2021 Diabetes Screening 06/22/2025 06/22/2022, 0 06/08/2013, 03/23/2012, Additional history exists Pap Smear 10/07/2025 10/07/2022, 06/08, 03/24/2012, Additional history exists Lipid Panel 06/22/2027 06/22/2022, 07/2013, 11/19/2009 Cervical Cancer Screening 10/08/2027 HPV/Co-Test 10/08/2027 10/07/2022 DTaP,Tdap,and Td Vaccines (4 - Td or Tdap) 11/16/2029 11/17/2019, 06/30/2018, 06/27/2008 COVID-19 Vaccine Completed 03/29/2022, 12/2021, 10/19/2020, Additional history exists Hepatitis C Screening Completed 10/07/2022 , 10/07/2022, 10/07/2022, Additional history exists Influenza Vaccine (FLU shot) [...] Diagnoses Diagnosis Supervision of high risk in second trimester Unspecified high-risk Rh negative status during in second trimester documented in this encounter Advance Directives Documents on File Type Date Recorded Patient 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 Care Teams Early Childhood Associate Relationship Specialty Start Date End Date Colette Wagoner DO [address] [place] [address] PCP - General Family Medicine 11/25/21 documented as of this encounter
--- OUTSIDE RECORDS SUMMARY | 2023-05-14 08:58 | External Medical Summary | Summary of Care ---
Author Name Unknown Organization [facility] Address [address] [place] [address] Phone [phone] Care Team Providers Care Dry Cell Battery Assembler Name Role Phone Colette Wagoner DO Primary Care Provider Reason for Visit * Reason Comments Return Visit Encounter Details Date Type Department Care Team (Late st Contact Info) Description 04/02/2023 1:45 PM EDT Office Visit Gynecology/Obstetric s [facility] [address] [place] [address] BackerSavannah CRNP [address] [place] [address] Supervision of high risk in third trimester*; Rh negative status during in third trimester; Multigravida of advanced maternal age in third trimester; Depression complicating , antepartum; Antepartum anemia complicating ; UTI symptoms Allergies No known active allergiesdocumented as of this encounter (statuses as of 04/02/2023) Medications Medication Sig Dispensed Refills Start Date [...] as of this encounter (statuses as of 04/02/2023) Active Problems Problem Noted Date Diagnosed Date [...] as of this encounter (statuses as of 04/02/2023) Resolved Problems Problem Noted Date Diagnosed Date [...] for 5+ years. She sees psychiatrist in [place] regularly and he approved this regimen for . Advised pt I would like her to taper off Ativan during . Continue Trazadone and Celexa for now. Obesity, Class II, BMI 35-39 .9, isolated (see actual BMI) 11/18/2009 01/19/2020 Overview: Per Obesity Protocol, #19 depression 07/28/2019 documented as of this encounter (statuses as of 04/02/2023) Immunizations Name Administration Dates Next Due COVID-19 mRNA, LNP-s, No Pre serve, 2-Dose Series (Moderna) 10/19/2020,09/21/2020 COVID-19, mRNA, LNP-s, PF, B ooster, 100mcg/0.5mg (Moderna) 06/13/2021 Covid-19, Mrna, Lnp-s, Pf, B ivalent, 30 Mcg, IM, 12 yrs and above ([employer]) 03/29/2022 MMR - Measles/Mumps/Rubella Vaccine 09/23/2018 SEASONAL [...] money to get more. Never true 12/25/2022 [place] Depression Scale Answer Date Recorded [place] Depression Scale Total 9 03/01/2023 The thought [...] Sign Reading Time Taken Comments Blood Pressure 118/64 04/02/2023 1:39 PM EDT Pulse - - Temperature - - Respiratory Rate - - Oxygen Saturation - - Inhaled Oxygen Concentration - - Weight 87.1 kg (192 lb) 04/02/2023 1:39 PM EDT Height - - Body Mass Index 31.95 03/19/2023 2:52 PM EDT documented in this encounter Progress Notes * Savannah Mcelroy CRNP - 04/02/2023 1:43 PM EDT 32w2d Good movement. No ctx, bleeding, leaking. [facility] growth scan completed on 03/25, does not need to return there unless clinically indicated. Urinary frequency, occasional dysuria. +leuks on urine dip, urine culture sent. Advised to call on-call OB if symptoms worsen over the weekend, push fluids. 2 week return. Will check CBC then. CELY Finn * Virginie Womack LPN - 04/02/2023 1:40 PM EDT 32w2d Denies vaginal bleeding/rom + movement Urinary frequency/burning documented in this encounter Plan of Treatment Upcoming Encounters Date Type Department Care Team (Late st Contact Info) Description 04/16/2023 4:30 PM EST Office Visit Gynecology/Obstetric[facility] [address] [place] [address] Danette Alaniz PA-C [address] [place] [address] 04/28/2023 3:15 PM EST Office Visit Gynecology/Obstetrics [facility] [address] [place] [address] Lillie Buchanan CRNP [address] [place] [address] 05/07/2023 4:30 PM EST Office Visit Gynecology/Obstetrics [facility] [address] [place] [address] Danette Alaniz PA-C [address] [place] [address] 05/13/2023 2:15 PM EST Office Visit Gynecology/Obstetrics [facility] [address] [place], [place] [address] Lillie Buchanan CRNP [address] [place] [address] 05/21/2023 4:30 PM EST Office Visit Gynecology/Obstetrics [facility] [address] [place], [place] [address] Danette Alaniz PA-C [address] [place] [address] 06/18/2023 2:40 PM EST Office Visit Family [facility] [address] [facility] [place] [address] Colette Wagoner, [address] [facility] [place], [place] [address] Pending Results Name Type Priority Associated Diagnoses Date /Time CULTURE, URINE, QUANTITATIVE Lab Routine UTI symptoms 04/02/2023 2:00 PM EDT Scheduled Orders Name Type Priority Associated Diagnoses Orde r Schedule CBC WITH WBC DIFFERENTIAL AND ANEMIA REFLEX WORKUP Lab Routine Antepartum anemia complicating Expected: 04/09/2023 (Approximate), Expires: 04/02/2024 Health Maintenance Due Date Last Done Comments [...] Not on filedocumented as of this encounter Procedures Procedure Name Priority Date/Time Associated Diagnosis Comments URINALYSIS, POINT OF CARE (ENTER/EDIT) Routine 04/02/2023 UTI symptoms documented in this encounter Results * URINALYSIS, POINT OF CARE (ENTER/EDIT) (04/02/2023) Color, Urine Yellow Yellow or Light Yellow Clarity, Urine Clear Clear Glucose, Urine Negative Negative mg/dL Bilirubin, Urine Negative Negative Ketone, Urine Negative Negative mg/dL Specific [place], Urine 1.015 1.003 - 1.030 Blood, Urine Trace-intact Negative pH, Urine 6.5 5.0 - 7.5 units Protein, Urine Negative Negative mg/dL Urobilinogen, Urine 0.2 0.2 - 1.0 mg/dL Nitrite, Urine Negative Negative Esterase, Urine Small Negative Urine 04/02/2023 Savannah TA LAB POINT O F CARE TEST ENTER/EDIT ORDERABLES documented in this encounter Visit Diagnoses Diagnosis Supervision of high risk in third trimester- Primary Unspecified high-risk Rh negative status during in third trimester Multigravida of advanced maternal age in third trimester Depression complicating , antepartum Mental disorders of mother, antepartum Antepartum anemia complicating Anemia, antepartum UTI symptoms Other symptoms involving urinary system documented in this encounter Advance Directives Documents on File Type Date Recorded Patient [employer] Expl anation Power of Vehicle Upholsterer 12/06/2019 POWER OF A TTORNEY Latest Code Status on File Code Status Date Activated Date Inactivated Comments Full Code 02/01/2020 3:24 AM 02/03/2020 6:07 PM This order reflects the patients wishes and were consensually agreed upon. Care Teams Dry Cell Battery Assembler Relationship Specialty Start Date End Date Colette Wagoner DO [address] [place] [address] PCP - General Family Medicine 11/25/21 documented as of this encounter
--- OUTSIDE RECORDS SUMMARY | 2023-05-14 08:58 | External Medical Summary | Summary of Care ---
Author Name Unknown Organization [facility] Address [address] [place] [address] Phone [phone] Care Team Providers Care Small Piece Cutter Name Role Phone Colette Wagoner DO Primary Care Provider Reason for Visit * Reason Comments Return Visit Encounter Details Date Type Department Care Team Description 03/19/2023 Office Visit Gynecology/Obstetrics [facility] [address] [place] [address] Rocky Bailey MD [address] [place] [address] Rh negative status during in third trimester*; Multigravida of advanced maternal age in third trimester; Supervision of high risk in third trimester; Depression complicating , antepartum Allergies No known active allergiesdocumented as of this encounter (statuses as of 03/19/2023) Medications Medication Sig Dispensed Refills Start Date [...] as of this encounter (statuses as of 03/19/2023) Active Problems Problem Noted Date Antepartum anemia complicating 03/01/2023 Overview: Hgb 10.9 at 27 wks - Rx Vitron C BID, recheck CBC in 4 weeks Depression complicating , antep artum 01/29/2023 Overview: [...] as of this encounter (statuses as of 03/19/2023) Resolved Problems Problem Noted Date Resolved Date Spontaneous vaginal delivery 02/03/2020 Supervision of high-risk , unspecified trimester 01/19/2020 02/15/2020 Obesity in , antepartum 01/19/2020 01/19/2020 Overview: Class 1 GBS (group B Streptococcus c arrier), +RV culture, currently 01/19/2020 02/15/2020 AMA (advanced maternal age) primigravida 35+ 02/15/2020 Overview: 39yoa at NOB Depression with anxiety 06/30/2019 02/15/20 Overview: Taking Celexa 40mg daily, Ativan 1mg daily and Trazadone 50mg at HS She reports she has been taking this regimen with management of her Anxiety for 5+ years. She sees psychiatrist in [place] regularly and he approved this regimen for . Advised pt I would like her to taper off Ativan during . Continue Trazadone and Celexa for now. Obesity, Class II, BMI 35-39.9, isolated (see ac tual BMI) 11/18/2009 01/19/2020 Overview: Per Obesity Protocol, #19 depression 07/28/2019 documented as of this encounter (statuses as of 03/19/2023) Immunizations Name Administration Dates Next Due COVID-19 mRNA, LNP-s, No Pre serve, 2-Dose Series (Moderna) 10/19/2020,09/21/2020 COVID-19, mRNA, LNP-s, PF, B ooster, 100mcg/0.5mg (Moderna) 06/13/2021 Covid-19, Mrna, Lnp-s, Pf, B ivalent, 30 Mcg, IM, 12 yrs and above ([employer]) 03/29/2022 MMR - Measles/Mumps/Rubella Vaccine 09/23/2018 SEASONAL [...] Sign Reading Time Taken Comments Blood Pressure 110/62 03/19/2023 2:52 PM EDT Pulse - - Temperature - - Respiratory Rate - - Oxygen Saturation - - Inhaled Oxygen Concentration - - Weight 85.7 kg (189 lb) 03/19/2023 2:52 PM EDT Height 165.1 cm (5' 5") 03/19/2023 2:52 PM EDT Body Mass Index 31.45 03/19/2023 2:52 PM EDT documented in this encounter Progress Notes * Rocky Bailey MD - 03/19/2023 3:08 PM EDT Pt doing well No complaints RTC 2 weeks * Marlee Aguilar LPN - 03/19/2023 2:52 PM EDT 30w2d Denies any issues documented in this encounter Nursing Notes * Nidhi Chaney LPN - 03/19/2023 3:06 PM EDT 03/19/2023 Tdap Vaccine administered per clinic protocol. Pt given VIS(vaccine information sheet) Nidhi Chaney LPN documented in this encounter Plan of Treatment Upcoming Encounters Date Type Specialty Care Team Description 03/25/2023 Imaging Radiology 03/25/2023 Office Visit Maternal Medicine Krishna Palafox MD [address] [place] [address] 04/02/2023 Office Visit Gynecology Obstetrics Savannah Mcelroy CRNP [address] [place] [address] 04/16/2023 Office Visit Gynecology Obstetrics Danette Alaniz PA-C [address] [place] [address] 04/28/2023 Office Visit Gynecology Obstetrics Lillie Buchanan CRNP [address] [place] [address] 05/07/2023 Office Visit Gynecology Obstetrics Danette Alaniz PA-C [address] [place] [address] 05/13/2023 Office Visit Gynecology Obstetrics Lillie Buchanan CRNP [address] [place] [address] 05/21/2023 Office Visit Gynecology Obstetrics Danette Alaniz PA-C [address] [place] [address] 06/18/2023 Office Visit Family Medicine Colette Wagoner, DO [address] [facility] [place] [address] Health Maintenance Due Date Last Done Comments [...] as of this encounter Visit Diagnoses Diagnosis Rh negative status during in third trimester- Primary Multigravida of advanced maternal age in third trimester Supervision of high risk in third trimester Unspecified high-risk Depression complicating , antepartum Mental disorders of mother, antepartum documented in this encounter Advance Directives Documents on File Type Date Recorded Patient Director Script Expl anation Power of Furnace Combination Analyst 12/06/2019 POWER OF A TTORNEY Latest Code Status on File Code Status Date Activated Date Inactivated Comments Full Code 02/01/2020 3:24 AM 02/03/2020 6:07 PM This order reflects the patients wishes and were consensually agreed upon. Care Teams Small Piece Cutter Relationship Specialty Start Date End Date Colette Wagoner DO [address] [place] [address] PCP - General Family Medicine 11/25/21 documented as of this encounter
--- OUTSIDE RECORDS SUMMARY | 2023-05-14 08:58 | External Medical Summary | Summary of Care ---
Author Name Unknown Organization [facility] Address [address] [place] [address] Phone [phone] Care Team Providers Care Creative Arts Music Therapist Name Role Phone Colette Wagoner DO Primary Care Provider Reason for Visit * Reason Comments Return Visit Encounter Details Date Type Department Care Team (Late st Contact Info) Description 04/02/2023 1:45 PM EDT Office Visit Gynecology/Obstetric s [facility] [address] [place] [address] BackerSavannah CRNP [address] [place] [address] Supervision of high risk in third trimester*; [...] for 5+ years. She sees psychiatrist in [place] regularly and he approved this regimen for [...] 30 Mcg, IM, 12 yrs and above ([employer]) 03/29/2022 MMR - Measles/Mumps/Rubella Vaccine 09/23/2018 SEASONAL [...] money to get more. Never true 12/25/2022 [place] Depression Scale Answer Date Recorded [place] Depression Scale Total 9 03/01/2023 The thought [...] 32w2d Good movement. No ctx, bleeding, leaking. [facility] growth scan completed on 03/25, does not [...] 4:30 PM EST Office Visit Gynecology/Obstetrics [facility] [address] [place] [address] Danette Alaniz PA-C [address] [place] [address] 04/28/2023 3:15 PM EST Office Visit Gynecology/Obstetrics [facility] [address] [place] [address] Lillie Buchanan CRNP [address] [place] [address] 05/07/2023 4:30 PM EST Office Visit Gynecology/Obstetrics [facility] [address] [place] [address] Danette Alaniz PA-C [address] [place] [address] 05/13/2023 2:15 PM EST Office Visit Gynecology/Obstetrics [facility] [address] [place], [place] [address] Lillie Buchaann CRNP [address] [place] [address] 05/21/2023 4:30 PM EST Office Visit Gynecology/Obstetrics [facility] [address] [place], [place] [address] Danette Alaniz PA-C [address] [place] [address] 06/18/2023 2:40 PM EST Office Visit Family [facility] [address] [facility] [place] [address] Colette Wagoner, [address] [facility] [place], [place] [address] Pending Results Name Type Priority Associated Diagnoses [...] Negative Ketone, Urine Negative Negative mg/dL Specific [place], Urine 1.015 1.003 - 1.030 Blood, Urine [...] Documents on File Type Date Recorded 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 Care Teams Creative Arts Music Therapist Relationship Specialty Start Date End Date Colette Wagoner DO [address] [place] [address] PCP - General Family Medicine 11/25/21 documented as of this encounter
--- OUTSIDE RECORDS SUMMARY | 2023-05-14 08:58 | External Medical Summary | Summary of Care ---
Author Name Unknown Organization [facility] Address [address] [place] [address] Phone [phone] Care Team Providers Care Diamond Saw Operator Name Role Phone Colette Wagoner DO Primary Care Provider Reason for Visit * Reason Comments Return Visit Encounter Details Date Type Department Care Team (Late st Contact Info) Description 04/16/2023 4:30 PM EST Office Visit Gynecology/Obstetric s [facility] [address] [place] [address] Danette Alaniz PA-C [address] [place] [address] Supervision of high risk in third trimester*; Rh negative status during in third trimester; Multigravida of advanced maternal age in third trimester; Depression complicating , antepartum; Antepartum anemia complicating ; Palpitation Allergies No known active allergiesdocumented as of [...] for 5+ years. She sees psychiatrist in [place] regularly and he approved this regimen for [...] 30 Mcg, IM, 12 yrs and above ([employer]) 03/29/2022 MMR - Measles/Mumps/Rubella Vaccine 09/23/2018 SEASONAL [...] money to get more. 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 Nothing since. Denies chest pain,SOB. No cardiac history. Heart and lung exam normal. Advised notify office if it should reoccur. ERwith any cp or SOB. Will stop at lab for repeat CBC. Due for GBS next visit. RTC in 2 weeks Danette Alaniz PA-C * Catherine Garcia LPN - 04/16/2023 4:24 PM EST 34w2d Pt denies any concerns. documented in this encounter Plan of Treatment Upcoming Encounters Date Type Department Care Team (Late st Contact Info) Description 04/28/2023 3:15 PM EST Office Visit Gynecology/Obstetrics [facility] [address] [place] [address] Lillie Buchanan CRNP [address] [place] [address] 05/07/2023 4:30 PM EST Office Visit Gynecology/Obstetrics [facility] [address] [place] [address] Danette Alaniz PA-C [address] [place] [address] 05/13/2023 2:15 PM EST Office Visit Gynecology/Obstetrics [facility] [address] [place] [address] Lillie Buchaann CRNP [address] [place] [address] 05/21/2023 4:30 PM EST [facility] [address] [place] [address] Danette Alaniz PA-C [address] [place] [address] 06/18/2023 2:40 PM EST Office Visit Family Practice [facility] [place] [address] [facility] [place] [address] Colette Wagoner, [address] [facility] [place] [address] Health Maintenance Due Date Last Done Comments [...] mother, antepartum Antepartum anemia complicating Anemia, antepartum Palpitation Palpitations documented in this encounter Advance Directives Documents on File Type Date Recorded Patient Motor Builder Winder Expl anation Power of Transportation Security Screener 12/06/2019 POWER OF A TTORNEY Latest Code Status on File Code Status Date Activated Date Inactivated Comments Full Code 02/01/2020 3:24 AM 02/03/2020 6:07 PM This order reflects the patients wishes and were consensually agreed upon. Care Teams Diamond Saw Operator Relationship Specialty Start Date End Date Colette Wagoner DO [address] [place] [address] PCP - General Family Medicine 11/25/21 documented as of this encounter
--- OUTSIDE RECORDS SUMMARY | 2023-05-14 08:58 | External Medical Summary | Summary of Care ---
Author Name Unknown Organization [facility] Address [address] [place] [address] Phone [phone] Care Team Providers Care Tool Machine Set Up Operator Name Role Phone Colette Wagoner DO Primary Care Provider Reason for Visit * Reason Comments Outpatient Testing Encounter Details Date Type Department Care Team Description 03/01/2023 Laboratory Laboratory, [facility] [address] [place] [id number] [facility] [address] [place] [address] Supervision of high risk in second trimester; [...] for 5+ years. She sees psychiatrist in [place] regularly and he approved this regimen for [...] Bailey MD [address] [place] [address] 03/25/2023 Imaging Radiology 03/25/2023 Office Visit Maternal Medicine Krishna Palafox MD [address] [place] [address] 04/02/2023 Office Visit Gynecology Obstetrics Savannah Mcelroy CRNP [address] [place] [address] 04/16/2023 Office Visit Gynecology Obstetrics Danette Alaniz PA-C [address] [place] [address] 04/28/2023 Office Visit Gynecology Obstetrics Lillie Buchanan CRNP [address] [place] [address] 05/07/2023 Office Visit Gynecology Obstetrics Danette Alaniz PA-C [address] [place] [address] 05/13/2023 Office Visit Gynecology Obstetrics Lillie Buchanan CRNP [address] [place] [address] 05/21/2023 Office Visit Gynecology Obstetrics Danette Alaniz PA-C [address] [place] [address] 06/18/2023 Office Visit Family Medicine Colette Wagoner, DO [address] [place] [address] Pending Results Name Type Priority Associated Diagnoses [...] 03/01/2023 7:58 AM EDT 100-G GESTATIONAL GLUCOSE, 3 HOUR Lab Routine Supervision of high risk in second trimester 03/01/2023 10:53 AM EDT Health Maintenance Due Date Last Done Comments Hepatitis B (1 of 3 - 3-dose series) 1981 Depression Screening 06/20/2020 06/20/2019 Mammogram 12/18/2022 12/18/2021 Diabetes Screening 06/22/2025 06/22/2022, 0 06/08/2013, 03/23/2012, Additional history exists Pap Smear 10/07/2025 10/07/2022, 06/08, 03/24/2012, Additional history exists Lipid Panel 06/22/2027 06/22/2022, 0 07/2013, 11/19/2009 Cervical Cancer Screening 10/08/2027 HPV/Co-Test [...] Procedure Name Priority Date/Time Associated Diagnosis Comments 100-G GESTATIONAL GLUCOSE, 2 HOUR Routine 03/01/2023 9:57 AM EDT Supervision of high risk in second trimester 100-G GESTATIONAL GLUCOSE, 1 HOUR Routine 03/01/2023 8:55 AM EDT Supervision of high risk in second trimester 100-G GESTATIONAL GLUCOSE, FASTING Routine 03/01/2023 7:58 AM EDT Supervision of high risk in second trimester documented in this encounter Results * 100-G GESTATIONAL GLUCOSE, 2 HOUR (03/01/2023 9:57 AM EDT) 100-g Gestational Glucose, 2 Hour 77 70 - 154 mg/dL 03/01/2023 10:39 AM EDT [facility] [place] 57-10 Blood Venous blood specimen / Unknown Venipuncture / Unknown 03/01/2023 9:57 AM EDT 03/01/2023 9:57 AM EDT Savannah Yung Alexer VETERINARY NURSE LAB BLOOD O RDERABLES [facility] [place] 57-10 [address] [facility] [place] [address] * 100-G GESTATIONAL GLUCOSE, 1 HOUR (03/01/2023 8:55 AM EDT) 100-g Gestational Glucose, 1 Hour 106 70 - 179 mg/dL 03/01/2023 10:07 AM EDT [facility] [place] 57-10 Blood Venous blood specimen / Unknown Venipuncture / Unknown 03/01/2023 8:55 AM EDT 03/01/2023 8:55 AM EDT Savannah Johnsoner VETERINARY NURSE LAB BLOOD O RDERABLES [facility] [place] 57-[address] [place], [place] [address] [address] * 100-G GESTATIONAL GLUCOSE, FASTING (03/01/2023 7:58 AM EDT) 100-g Gestational Glucose, Fasting 75 70 - 94 mg/dL 03/01/2023 9:14 AM EDT [facility] [place] 57-10 Blood Venous blood specimen / Unknown Venipuncture / Unknown 03/01/2023 7:58 AM EDT 03/01/2023 7:58 AM EDT Narrative [facility] [place] 57-10 - 03/01/2023 9:14 AM EDT Based on ACOG guideline, gestational diabetes mellitus is diagnosed when any of the following is met: Fasting is greater than or equal to 95 mg/dL 1 hour is greater than or equal to 180 mg/dL 2 hour is greater than or equal to 155 mg/dL 3 hour is greater than or equal to 140 mg/dL Savannah Yung Backer VETERINARY NURSE LAB BLOOD O RDERABLES [facility] [place] 57-10 [address] [place] [address] documented in this encounter Visit Diagnoses Diagnosis Supervision of high risk in second trimester Unspecified high-risk Rh negative status during in second trimester documented in this encounter Advance Directives Documents on File Type Date Recorded Patient Platen Press Operator Expl anation Power of Dance Instructor 12/06/2019 POWER OF A TTORNEY Latest Code Status on File Code Status Date Activated Date Inactivated Comments Full Code 02/01/2020 3:24 AM 02/03/2020 6:07 PM This order reflects the patients wishes and were consensually agreed upon. Care Teams Tool Machine Set Up Operator Relationship Specialty Start Date End Date Colette Wagoner DO [address] [place] [address] PCP - General Family Medicine 11/25/21 documented as of this encounter
--- OUTSIDE RECORDS SUMMARY | 2023-05-14 08:58 | External Medical Summary | Summary of Care ---
Author Name Unknown Organization [facility] Address [address] [place] [address] Phone [phone] Care Team Providers Care Medicaid Specialist Name Role Phone Colette Wagoner DO Primary Care Provider Encounter Details Date Type Department Care Team (Late st Contact Info) Description 03/25/2023 2:30 PM EDT Office Visit Switch Technician Obstetrics Maternal Medicine, [facility] [address] [facility] [place] [address] Krishna Palafox MD [address] [place] [address] Multigravida of advanced maternal age in third trimester*; Depression complicating , antepartum Allergies No known active allergiesdocumented as of this encounter (statuses as of 03/31/2023) Medications Medication Sig Dispensed Refills Start Date [...] as of this encounter (statuses as of 03/31/2023) Active Problems Problem Noted Date Diagnosed Date [...] as of this encounter (statuses as of 03/31/2023) Resolved Problems Problem Noted Date Diagnosed Date [...] for 5+ years. She sees psychiatrist in [place] regularly and he approved this regimen for . Advised pt I would like her to taper off Ativan during . Continue Trazadone and Celexa for now. Obesity, Class II, BMI 35-39 .9, isolated (see actual BMI) 11/18/2009 01/19/2020 Overview: Per Obesity Protocol, #19 depression 07/28/2019 documented as of this encounter (statuses as of 03/31/2023) Immunizations Name Administration Dates Next Due COVID-19 [...] money to get more. Never true 12/25/2022 [place] Depression Scale Answer Date Recorded [place] Depression Scale Total 9 03/01/2023 The thought [...] on file documented as of this encounter Progress Notes * Krishna Palafox MD - 03/31/2023 4:12 PM EDT MATERNAL MEDICINE VISIT Eloisa Wilson is at 31w1d who presents to [facility] for an ultrasound and follow-up of her high risk . The patient is currently 31 weeks and 1 day gestation with advanced maternal age, 43 years of age at delivery. She comes in for an evaluation of growth. She is being seen today by Maternal- Medicine for the following reasons: Problem List Items Addressed This Visit AMA (advanced maternal age) multigravida 35+ - Primary I reviewed the ultrasound. The overall estimated weight is consistent with the 29th percentile for the gestational age and the fetus is in the vertex presentation. The anatomy that was visualized appears unremarkable and the amniotic fluid volume is normal at 14 cm. At this point, there is no clinical indication for return. Depression complicating , antepartum Thank you for allowing us to participate in the care of this patient. Please call with any questions. Krishna Palafox MD 03/31/2023 4:12 PM documented in this encounter Miscellaneous Notes * Assessment & Plan Note - Krishna Palafox MD - 03/31/2023 4:13 PM EDT Associated Problem(s): AMA (advanced maternal age) multigravida 35+ I reviewed the ultrasound. The overall estimated weight is consistent with the 29th percentile for the gestational age and the fetus is in the vertex presentation. The anatomy that was visualized appears unremarkable and the amniotic fluid volume is normal at 14 cm. At this point, there is no clinical indication for return. documented in this encounter Plan of Treatment Upcoming Encounters Date Type Department Care Team (Late st Contact Info) Description 04/02/2023 1:45 PM EDT Office Visit Gynecology/Obstetrics [facility] [address] [place] [address] Savannah Mcelroy CRNP [address] [place] [address] 04/16/2023 4:30 PM EST Office Visit Gynecology/Obstetrics [facility] [address] [place] [address] Danette Alaniz PA-C [address] [place] [address] 04/28/2023 3:15 PM EST Office Visit Gynecology/Obstetrics [facility] [address] [place] [address] Lillie Buchanan CRNP [address] [place] [address] 05/07/2023 4:30 PM EST Office Visit Gynecology/Obstetrics [facility] [address] [place] [address] Danette Alaniz PA-C [address] [place] [address] 05/13/2023 2:15 PM EST Office Visit Gynecology/Obstetrics [facility] [address] [place] [address] Lillie Buchanan CRNP [address] [place] [address] 05/21/2023 4:30 PM EST Office Visit Gynecology/Obstetrics [facility] [address] [place] [address] Danette Alaniz PA-C [address] [place] [address] 06/18/2023 2:40 PM EST Office Visit Family Practice [facility] [address] [facility] [place] [address] Colette Wagoner, [address] [facility] [place] [address] Health Maintenance Due Date Last Done Comments [...] advanced maternal age in third trimester- Primary Depression complicating , antepartum Mental disorders of mother, antepartum documented in this encounter Advance Directives Documents on File Type Date Recorded Patient Digital Librarian Expl anation Power of Enterprise Business Architect 12/06/2019 POWER OF A TTORNEY Latest Code Status on File Code Status Date Activated Date Inactivated Comments Full Code 02/01/2020 3:24 AM 02/03/2020 6:07 PM This order reflects the patients wishes and were consensually agreed upon. Care Teams Medicaid Specialist Relationship Specialty Start Date End Date Colette Wagoner DO [address] [place] [address] PCP - General Family Medicine 11/25/21 documented as of this encounter
--- OUTSIDE RECORDS SUMMARY | 2023-05-14 08:58 | External Medical Summary ---
Author Name Unknown Address Unknown Organization [id number]:[facility] [place] [address] [place] [address] Laboratory Report Ordering Provider Test Date Status FATOUMATA FABIAN 04/02/2023 14:00:48 Final Observation Date Value Abnormality Reference (Units) Status Bacteria identified in Specimen by Culture 04/02/2023 14:00:48 No significant growth Final Test: Culture, Urine, Quanti tative
Specimen Source: Urine, Clean Catch
Specimen Type: Urine
Specimen Date: 04/02/2023 2:00 PM
Result Date: 04/03/2023 4:13 PM
Result Status: Final result
Resulting Lab: [facility]
[address]
[place] [address]

CULTURE

No significant growth

null Performing Location [facility] [place] [address] [place] [address]
--- OUTSIDE RECORDS SUMMARY | 2023-05-14 08:58 | External Medical Summary ---
Author Name Unknown Address Unknown Organization [id number]:[facility] [place] - [address] [place] [address] Laboratory Report Ordering Provider Test Date Status RUIBACKER 04/16/2023 16:45:08 Final Observation Date Value Abnormality Reference (Units ) Status SYNC LEUKOCYTES IN BLOOD BY AUTOMATED COUNT 04/16/2023 16:45:08 11.06 Above high normal 4.00-10.80 (K/uL) Final Segs 04/16/2023 16:45:08 69.6 40.0-75.0 (%) Final Lymphs % 04/16/2023 16:45:08 21.7 18.0-42.0 (%) Final Monos 04/16/2023 16:45:08 6.6 1.0-11.0 (%) Final Eosinophils 04/16/2023 16:45:08 0.8 0.0-6.0 (%) Final Basos 04/16/2023 16:45:08 0.4 0.0-2.0 (%) Final Immature Granulocyte, Percent 04/16/2023 16:45:08 0.9 0.0-2.0 (%) Final Absolute Segs 04/16/2023 16:45:08 7.70 1.80-7.70 (K/uL) Final Lymphs, absolute 04/16/2023 16:45:08 2.40 1.00-4.80 (K/ul) Final Monos, Abs 04/16/2023 16:45:08 0.73 0.00-1.10 (K/uL) Final Eos, Abs 04/16/2023 16:45:08 0.09 0.00-0.70 (K/uL) Final Basos, Abs 04/16/2023 16:45:08 0.04 0.00-0.20 (K/uL) Final Immature Granulocytes, Number 04/16/2023 16:45:08 0.10 0.00-0.20 (K/uL) Final Performing Location [facility] [place] - [address] [place] [address]
--- OUTSIDE RECORDS SUMMARY | 2023-05-14 08:58 | External Medical Summary | Summary of Care ---
Author Name Unknown Organization [facility] Address [address] [place] [address] Phone [phone] Care Team Providers Care Cushion Padder Name Role Phone CastilloColette best DO Primary Care Provider Reason for Visit * Reason Onset Date Comments Return Visit Medication Administration 03/01/2023 Flu an d/or Pneumo Inj Encounter Details Date Type Department Care Team Description 03/01/2023 Office Visit Gynecology/Obstetrics [facility] [address] [place] [address] Lillie Buchanan CRNP [address] [place] [address] Multigravida of advanced maternal age in third trimester*; Rh negative status during in third trimester; Supervision of high risk in third trimester; Depression complicating , antepartum; Need for prophylactic vaccination and inoculation against influenza Allergies No known active allergiesdocumented as of [...] by mouth in the morning. 0 Active Hospital, Clinic, or Other Facility Administered Medication Ordered Dose Route Frequency Start Date End Date Status Rho D Immune Globulin (Rhophylac) inj 300 mcgIndications:Rh negative status during in third trimester 300 mcg IM ONCE 03/01/2023 03/01/2023 Ended documented as of this encounter (statuses as [...] for 5+ years. She sees psychiatrist in [place] regularly and he approved this regimen for [...] 30 Mcg, IM, 12 yrs and above ([employer]) 03/29/2022 MMR - Measles/Mumps/Rubella Vaccine 09/23/2018 Seasonal [...] Sign Reading Time Taken Comments Blood Pressure 100/60 03/01/2023 8:01 AM EDT Pulse - - Temperature - - Respiratory Rate - - Oxygen Saturation - - Inhaled Oxygen Concentration - - Weight 84.6 kg (186 lb 6.4 oz) 03/01/2023 8:01 A M EDT Height 165.1 cm (5' 5") 03/01/2023 8:01 AM EDT Body Mass Index 31.02 03/01/2023 8:01 AM EDT documented in this encounter Progress Notes * CELY Coley - 03/01/2023 8:32 AM EDT 27w5d No concerns. Baby is very active. No bleeding or LOF, no contractions. Completing 3hr GTT today. Glucola, TDAP, Rhogam today. CELY Coley * Catherine Garcia LPN - 03/01/2023 8:08 AM EDT 27w5d Pt completing 28wk labs today, would like flu shot. Rhogam today. Pt denies any concerns. documented in this encounter Nursing Notes * Catherine Garcia LPN - 03/01/2023 8:27 AM EDT Patient here for rhogam injection. Patient doing well no complaints. Injection given IM as ordered.Patient tolerated well. Patient to follow up as directed. Patient instructed to call if any complications. Patient verbalized understanding of instructions given. Injection site: Left Gluteus Medication Source: Dispensed stock medication Patient here for flu injection. Patient doing well no complaints. Injection given IM as ordered. Patient tolerated well. Patient to follow up as directed. Patient instructed to call if any complications. Patient verbalized understanding of instructions given. Injection site: Left Deltoid Medication Source: Dispensed stock medication documented in this encounter Plan of Treatment Upcoming Encounters Date Type Specialty Care Team Description 03/19/2023 Office Visit Gynecology Obstetrics Rocky Bailey MD [address] [place] [address] 03/25/2023 Imaging Radiology 03/25/2023 Office Visit Maternal Medicine FabiobrooksKrishna MD [address] [place] [address] 04/02/2023 Office Visit Gynecology Obstetrics BackSavannah diaz CRNP [address] [place] [address] 04/16/2023 Office Visit Gynecology Obstetrics Danette Alaniz PA-C [address] [place] [address] 04/28/2023 Office Visit Gynecology Obstetrics Lillie Buchanan CRNP [address] [place] [address] 05/07/2023 Office Visit Gynecology Obstetrics Danette Alaniz PA-C [address] [place] [address] 05/13/2023 Office Visit Gynecology Obstetrics Lillie Buchanan CRNP [address] [place] [address] 05/21/2023 Office Visit Gynecology Obstetrics Danette Alaniz PA-C [address] [place] [address] 06/18/2023 Office Visit Family Medicine Colette Wagoner, DO [address] [place] [address] Health Maintenance Due Date Last Done Comments [...] maternal age in third trimester- Primary Rh negative status during in third trimester Supervision of high risk in third trimester Unspecified high-risk Depression complicating , antepartum Mental disorders of mother, antepartum Need for prophylactic vaccination and inoculation against influenza documented in this encounter Administered Medications Inactive Administered Medications - up to 3 most recent administrations Medication Order MAR Action Action Date Dose Rate Site Rho D Immune Globulin (Rhophylac) inj 300 mcg 300 mcg, Intramuscular, ONCE, On 03/01/23 at 0845, For 1 dose, Do not administer until type and screen has been collected! 1 MCG = 5 INTERNATIONAL UNITS Given 03/01/2023 8:28 AM EDT 300 mcg Dorsogluteal Left documented in this encounter Advance Directives Documents on File Type Date Recorded Patient Tax Commissioner Expl anation Power of Postal Inspector 12/06/2019 POWER OF A TTORNEY Latest Code Status on File Code Status Date Activated Date Inactivated Comments Full Code 02/01/2020 3:24 AM 02/03/2020 6:07 PM This order reflects the patients wishes and were consensually agreed upon. Care Teams Cushion Padder Relationship Specialty Start Date End Date Colette Wagoner DO [address] [place] [address] PCP - General Family Medicine 11/25/21 documented as of this encounter
--- OUTSIDE RECORDS SUMMARY | 2023-05-14 08:58 | External Medical Summary | Summary of Care ---
Author Name Unknown Organization [facility] Address [address] [place] [address] Phone [phone] Care Team Providers Care Cripple Chaser Name Role Phone Colette Wagoner DO Primary Care Provider Reason for Visit * Reason Comments Outpatient Testing Encounter Details Date Type Department Care Team Description 03/01/2023 Laboratory Laboratory, [facility] [address] [place] [id number] [facility] [address] [place] [address] Supervision of high risk in second trimester; [...] for 5+ years. She sees psychiatrist in [place] regularly and he approved this regimen for [...] Bailey MD [address] [place] [phone] 03/25/2023 Imaging Radiology 03/25/2023 Office Visit Maternal Medicine Krishna Palafox MD [address] [place] [address] 04/02/2023 Office Visit Gynecology Obstetrics Savannah Mcelroy CRNP [address] [place] [phone] 04/16/2023 Office Visit Gynecology Obstetrics Danette Alaniz PA-C [address] [place] [address] 04/28/2023 Office Visit Gynecology Obstetrics Lillie Buchanan CRNP [address] [place] [phone] 05/07/2023 Office Visit Gynecology Obstetrics Danette Alaniz PA-C [address] [place] [address] 05/13/2023 Office Visit Gynecology Obstetrics Lillie Buchanan CRNP [address] [place] [address] 05/21/2023 Office Visit Gynecology Obstetrics Danette Alaniz PA-C [address] [place] [address] 06/18/2023 Office Visit Family Medicine Colette Wagoner, DO [address] [facility] [place] [address] Pending Results Name Type Priority Associated Diagnoses [...] in second trimester 03/01/2023 8:55 AM EDT 100-G GESTATIONAL GLUCOSE, 2 HOUR Lab Routine Supervision of high risk in second trimester 03/01/2023 9:57 AM EDT Scheduled Orders Name Type Priority Associated Diagnoses Orde r Schedule 100-G GESTATIONAL GLUCOSE, 3 HOUR Lab Routine [...] Date/Time Associated Diagnosis Comments 100-G GESTATIONAL GLUCOSE, FASTING Routine 03/01/2023 7:58 AM EDT Supervision of high risk in second trimester documented in this encounter Results * 100-G GESTATIONAL GLUCOSE, FASTING (03/01/2023 7:58 AM EDT) 100-g Gestational Glucose, Fasting 75 70 - 94 mg/dL 03/01/2023 9:14 AM EDT LAB[facility]ATORY [facility] 57-10 Blood Venous blood specimen / Unknown Venipuncture / Unknown 03/01/2023 7:58 AM EDT 03/01/2023 7:58 AM EDT Narrative LAB[facility]ATORY [facility] 57-10 - 03/01/2023 9:14 AM EDT Based [...] equal to 140 mg/dL Savannah Yung Backer SPOTTER DRIVER LAB BLOOD O RDERABLES LABORATORY [facility] 57-10 [address] [facility] [place] [phone] documented in this encounter Visit Diagnoses Diagnosis Supervision of high risk in second trimester Unspecified high-risk Rh negative status during in second trimester documented in this encounter Advance Directives Documents on File Type Date Recorded Patient Controller Mechanic Expl anation Power of Pv Design And Installation Technician 12/06/2019 POWER OF A TTORNEY Latest Code Status on File Code Status Date Activated Date Inactivated Comments Full Code 02/01/2020 3:24 AM 02/03/2020 6:07 PM This order reflects the patients wishes and were consensually agreed upon. Care Teams Cripple Chaser Relationship Specialty Start Date End Date Colette Wagoner DO [address] [place] [address] PCP - General Family Medicine 11/25/21 documented as of this encounter
--- OUTSIDE RECORDS SUMMARY | 2023-05-14 08:58 | External Medical Summary ---
Author Name Unknown Address Unknown Organization [id number]:LABORATORY [facility] [place] - [address] [place] [address] Laboratory Report Ordering Provider Test Date Status FATOUMATA FABIAN 04/16/2023 16:45:08 Final Observation Date Value Abnormality Reference (Units ) Status TSH 04/16/2023 16:45:08 2.00 0.27-4.20 (uIU/mL) Final Performing Location [facility] - [address] [place] [address]
--- OUTSIDE RECORDS SUMMARY | 2023-05-14 08:59 | External Medical Summary | Summary of Care ---
Author Name Unknown Organization [facility] Address [address] [place] [address] Phone [phone] Care Team Providers Care Chain Dyer Name Role Phone Colette Wagoner DO Primary Care Provider Reason for Visit * Reason Comments Genetic Counseling * Evaluate & Treat - Unlimited Visits (Within 10 days (routine)) - Authorized Specialty Diagnoses / Procedures Referred By Aleah pinto Referred To Contact Medical Genetics / Hematology Oncology Diagnoses Genetic testing Halley Kirk CRNP [address] [place] [address] Referral ID Status Reason Start Date Expiration Date Visits Requested Visits Authorized [id number] Authorized Specialty Services Required 12/15/[phone] Encounter Details Date Type Department Care Team Description 12/21/2022 Telemedicine Denture Model Maker Obstetrics Maternal Medicine, [place] [address] [address] [place], [place] [address] [address] Abnormal chromosomal and genetic finding on screening of mother*; Encounter for procreative genetic counseling; Multigravida of advanced maternal age in second trimester; Supervision of high-risk , second trimester Allergies No known active allergiesdocumented as of this encounter (statuses as of 12/21/2022) Medications Medication Sig Dispensed Refills Start Date [...] by mouth. Unsure of dose 0 Active LORazepam 0.5 MG Oral Tablet (Ativan)Indications:G AD (generalized anxiety disorder) 90 Tablet 3 06/16/2022 Active Vitamin D 50 MCG (2000 UT) Oral Capsule Take 2,000 Units by mouth in the morning. 0 Active Co Q 10 100 MG Oral Capsule Take 1 Capsule by mouth in the morning. 0 Active Vitamin E 400 UNIT Oral Capsule Take 1 Capsule by mouth in the morning. 0 Active Citalopram Hydrobromide 40 MG Oral Tablet (CeleXA)Indications:M oderate episode of recurrent major depressive disorder (HCC) TAKE ONE TABLET BY MOUTH EVERY DAY 90 Tablet 3 07/13/2022 07/13/2023 Active traZODone HCl 50 MG Oral Tablet (Desyrel)Indications: Primary insomnia TAKE ONE TABLET BY MOUTH EVERY DAY AT BEDTIME 90 Tablet 1 12/16/2022 12/16/2023 Active documented as of this encounter (statuses as of 12/21/2022) Active Problems Problem Noted Date Supervision of high risk in rst trimester 10/14/2022 AMA (advanced maternal age) multigravida 35+ 10/07/2022 Overview: Will be 43 years old at time of delivery NIPT: desires, OB provider to order Genetic consult: declines at this time / will do if NIPT abnormal MFM limited anatomy scan scheduled 11/17/2022 MFM anatomy scan scheduled 01/05/2023 Last Assessment & Plan: I reviewed the ultrasound. The anatomy that was visualized is appropriate for the gestational age. We will bring back at 19 weeks of gestation for an evaluation of anatomy. Moderate episode of recurrent major depr essive disorder 07/23/2020 Spontaneous vaginal delivery 02/03/2020 Rh negative status during 06/09 Overview: Received Rhogam 10/05/22 for bleeding Estimated Date of Delivery Comme nts Yes 05/26/2023 Based on last me nstrual period of 08/19/2022 (Exact Date) documented as of this encounter (statuses as of 12/21/2022) Resolved Problems Problem Noted Date Resolved Date Supervision of high-risk , unspecified trimester 01/19/2020 [...] for 5+ years. She sees psychiatrist in [place] regularly and he approved this regimen for . Advised pt I would like her to taper off Ativan during . Continue Trazadone and Celexa for now. Obesity, Class II, BMI 35-39.9, isolated (see ac tual BMI) 11/18/2009 01/19/2020 Overview: Per Obesity Protocol, #19 depression 07/28/2019 documented as of this encounter (statuses as of 12/21/2022) Immunizations Name Administration Dates Next Due COVID-19 mRNA, LNP-s, No Pre serve, 2-Dose Series (Moderna) 10/19/2020,09/21/2020 Covid-19 Mrna, Lnp-s, No Pre serve, Booster (Moderna) 06/13/2021 Covid-19, Mrna, Lnp-s, Pf, B ivalent, 30 Mcg, IM, 12 yrs and above (ShopLocket) 03/29/2022 MMR - Measles/Mumps/Rubella Vaccine 09/23/2018 Seasonal Influenza, Quadriva lent, No Preserve, 6 Mons & Above, IM 04/30/2021,04/05/2020,05/03/2019 Seasonal Influenza, Quadriva lent, No Preserve, [...] got money to buy more. Never true 09/24/2022 Within the past 12 months, t he food you bought just didn't last and you didn't have money to get more. Never true 09/24/2022 Estimated Date of Delivery Comme nts Yes 05/26/2023 Based on last me nstrual period of 08/19/2022 (Exact Date) Sex Assigned at Date Recorded Female 09/23/2022 8:45 PM E DT Job Start Date Occupation Industry Not on file Not on file Not on file documented as of this encounter Progress Notes * [place], [place] - 12/21/2022 9:00 AM EDT Patient location: HOME. I was not in a hospital or clinic location. After connecting through [employer], patient was verified with two unique identifiers. 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 Methods to assure confidentiality were taken. Patient acknowledged consent and understanding of privacy and security of the Telemedicine visit. The patient agreed to participate. GENETIC COUNSELING FOR MATERNAL MEDICINE Eloisa Wilson 12/21/2022 Referring provider: CELY Bhatt Seen previously by Genetic Counseling: no REASON FOR CONSULT: Eloisa Wilson is a 42 year old year old with an VIRI of 05/26/2023, placing the patient atapproximately 17 weeks 5 days gestation at the time of our consultation. The patient was unaccompanied. Deyvi RODRIGUEZ was present with permission. Eloisa Wilson presents for genetic counseling today due to two low fraction on NIPT. PARTNER'S INFORMATION: Partner's name is Keenan Wilson : 11/11/1983 (FOB#1). Partner does not have children from priorrelationships. CURRENT GENETIC LABS: - NIPT: low fraction x2 (one drawn around 11 weeks and the second around 15 weeks gestation) OB HISTORY: OB History Para Term AB Living 2 1 1 0 0 1 SAB IAB Ectopic Multiple Live Births 0 0 0 0 1 # Outcome Date GA Lbr Darrion/2nd Weight Sex Delivery Anes PTL Lv 2 Current 1 Term 02/01/20 39w0d 01:34 / 02:12 2.885 kg (6 lb 5.8 oz) F Vag-Spont Spinal N MARLENE Comments: No problems Obstetric Comments 2022 FOB: Keenan FAMILY HISTORY: - A review of the genetic family history for this patient and her partner was performed, however nomedical records were available at the time of consultation. Significant details noted here: Patient's Family History: - Unremarkable Partner's Family History: - Unremarkable - The remaining and family history showed no evidence of defects, multiple miscarriages, intellectual disability, genetic disease, or significant exposures. - A full pedigree was obtained and linked below labeled as "Progress Notes" under "Other Notes" in this encounter. COUNSELIN. NIPT Low Fraction x2: - The patient's NIPT/cell-free DNA screening resulted as "low fraction". This is NOT a true high risk result, as the chromosomal material was not analyzed specifically. The fractionwas below the threshold for analysis. Reviewed the technology base for this testing and discussed the concept of fraction. - Explained that there are many factors that can influence the fraction. Earlier gestations usually results in a lower fraction. Maternal weight or a small or abnormal placenta can affectfetal fraction as well. Other factors include maternal insulin dependent diabetes and maternal use of blood thinners (Lovenox). - Reviewed that some research studies have found an association of an increased risk for aneuploidy, or possibly another chromosome abnormality, with low fraction. - A low fraction may also be a normal variant. - The high risk due to low fraction result should prompt a anatomic scan. Ultrasound findings are identified in approximately 80% of fetuses with trisomy 18, trisomy 13, or triploidy at the time of the anatomy ultrasound. Discussed that ultrasound can provide information that can moderate the risk of a chromosomal abnormality but it is not diagnostic for a chromosomal abnormality. - Discussed the option of re-drawing the patient's NIPT/cffDNA screening. Reviewed the limitations of screening and discussed possibility of another low fraction result. - Discussed Quad screen is NOT recommended due to advanced maternal age. With AMA and Quad screen, there is a high chance for a false positive due to the cut off of age 35 for screen positive. - Reviewed the distinction between screening (NIPT) and diagnostic testing (amniocentesis). Also reviewed option for monitoring with ultrasound. - Amniocentesis carry a 1 in 500 risk for miscarriage if done prior to 24 weeks gestation an delivery if completed after 24 weeks gestation. PLAN: - Couple will discuss options and reach out if interested in amnio. - Recommend anatomy ultrasound around 20 weeks gestation. - For any future , we recommend that the patient inquire about changes in testing methodologies for carrier screening or updates in panels available A total of 25 minutes was spent in telemedicine genetic counseling consultation. Thank you for your consult. Please feel free to call with any questions regarding this report. Bony Pitt [place] Licensed, Certified Genetic Counselor documented in this encounter Plan of Treatment Upcoming Encounters Date Type Specialty Care Team Description 01/01/2023 Office Visit Gynecology Obstetrics Backer, CELY Kamara [address] [place] [address] 01/22/2023 Office Visit Maternal Medicine [facility] Valentin[facility] [address] [facility] [address] 01/22/2023 Imaging Radiology 06/18/2023 Office Visit Family Medicine Colette Wagoner, DO [address] [facility] [address] Scheduled Referrals Name Type Priority Associated Diagnoses Orde r Schedule GENETICS REFERRAL OP Referral Within 10 days (routine) Genetic testing Ordered: 12/15/2022 Health Maintenance Due Date Last Done Comments Hepatitis B (1 of 3 - 3-dose series) 1981 Depression Screening, Annual for Pts 12 and Over 06/20/2020 06/20/2019 Mammogram 12/18/2022 12/18/2021 Influenza Vaccine (FLU shot) (#1) 2023 03/29/2022, 04/30/2021, 04/05/2020, Additional history exists Diabetes Screening 06/22/2025 06/22/2022, 0 06/08/2013, 03/23/2012, Additional history exists Lipid Panel 06/22/2027 06/22/2022, 07/2013, 11/19/2009 Pap Smear 10/08/2027 10/07/2022, 06/08, 03/24/2012, Additional history exists DTaP,Tdap,and Td Vaccines (4 - Td or Tdap) 11/16/2029 11/17/2019, 06/30/2018, 06/27/2008 COVID-19 Vaccine Completed 03/29/2022, 12/2021, 10/19/2020, Additional history exists Hepatitis C Screening Completed 10/07/2022 , 10/07/2022, 10/07/2022, Additional history exists GARDASIL-HPV IMMUNIZATION SERIES Aged [...] as of this encounter Visit Diagnoses Diagnosis Abnormal chromosomal and genetic finding on screening of mother- Primary Abnormal findings on screening Encounter for procreative genetic counseling Multigravida of advanced maternal age in second trimester Supervision of high-risk , second trimester documented in this encounter Advance Directives Documents on File Type Date Recorded Patient College Coach Expl anation Power of Test Tech 12/06/2019 POWER OF A TTORNEY Latest Code Status on File Code Status Date Activated Date Inactivated Comments Full Code 02/01/2020 3:24 AM 02/03/2020 6:07 PM This order reflects the patients wishes and were consensually agreed upon. Care Teams Chain Dyer Relationship Specialty Start Date End Date Colette Wagoner DO [address] [place] [address] PCP - General Family Medicine 11/25/21 documented as of this encounter
--- OUTSIDE RECORDS SUMMARY | 2023-05-14 08:59 | External Medical Summary ---
Author Name Unknown Address Unknown Organization [id number]:[facility] [place] [address] [place] [address] Laboratory Report Ordering Provider Test Date Status FATOUMATA FABIAN 03/01/2023 07:58:32 Final Observation Date Value Abnormality Reference (Units ) Status Vitamin B12 03/01/2023 07:58:32 [phone] (pg/mL) Final Performing Location [facility] [place] [address] [place] [id number]
--- OUTSIDE RECORDS SUMMARY | 2023-05-14 08:59 | External Medical Summary | Summary of Care ---
Author Name Unknown Organization [facility] Address [address] [place] [address] Phone [phone] Care Team Providers Care Churn Operator Margarine Name Role Phone Castillonasir Colette Rowley DO Primary Care Provider Reason for Visit * Reason Comments Ultrasound * Evaluate & Treat - Unlimited Visits (Within 10 days (routine)) - Authorized Specialty Diagnoses / Procedures Referred By Aleah pinto Referred To Contact Obstetrics/Gynecology / Maternal Medicine Diagnoses Multigravida of advanced maternal age in first trimester Lillie Buchanan CRNP [address] [place] [address] Referral ID Status Reason Start Date Expiration Date Visits Requested Visits Authorized [id number] Authorized Specialty Services Required 10/07/[phone] Encounter Details Date Type Department Care Team Description 01/11/2023 Office Visit Saw Sharpener Obstetrics Maternal Medicine, [place] [address] [place] [address] Krishna Palafox MD [address] [place] [address] Multigravida of advanced maternal age in second trimester* Allergies No known active allergiesdocumented as of this encounter (statuses as of 01/11/2023) Medications Medication Sig Dispensed Refills Start Date [...] as of this encounter (statuses as of 01/11/2023) Active Problems Problem Noted Date Supervision of [...] as of this encounter (statuses as of 01/11/2023) Resolved Problems Problem Noted Date Resolved Date [...] for 5+ years. She sees psychiatrist in [place] regularly and he approved this regimen for . Advised pt I would like her to taper off Ativan during . Continue Trazadone and Celexa for now. Obesity, Class II, BMI 35-39.9, isolated (see ac tual BMI) 11/18/2009 01/19/2020 Overview: Per Obesity Protocol, #19 depression 07/28/2019 documented as of this encounter (statuses as of 01/11/2023) Immunizations Name Administration Dates Next Due COVID-19 [...] Progress Notes * Krishna Palafox MD - 01/11/2023 12:36 PM EDT MATERNAL MEDICINE VISIT Eloisa Wilson is at 20w5d who presents to [facility] for an ultrasound and follow-up of her high risk . The patient is currently at 20 weeks, 5 days gestation here for a visit. She is AMA. She has a LR noninvasive screen and a negative maternal serum AFP screen. She is being seen today by Maternal- Medicine for the following reasons: Problem List Items Addressed This Visit AMA (advanced maternal age) multigravida 35+ - Primary I reviewed the ultrasound with her. The [...] of gestation for an evaluation of growth. We reviewed today's ultrasound findings. (For full report, please refer to ultrasound report provided separately). Ms. Wilson's questions were answered to her satisfaction. Ms. Wilson was instructed to notify her primary insurance clerk if she felt regular contractions (approximately every 10 mins), leaking of fluid, vaginal bleeding or if movement decreased. RECOMMENDATIONS: Recommend surveillance starting at 38 weeks secondary to AMA, 41 at delivery. Recommend follow up ultrasound with MFM in 10 weeks for growth secondary to AMA, 41 at delivery. Recommend delivery at 39 weeks gestation. Thank you for allowing us to participate in the care of this patient. Please call with any questions. Krishna Palafox MD 01/11/2023 12:36 PM documented in this encounter Miscellaneous Notes * Assessment & Plan Note - Krishna Palafox MD - 01/11/2023 1:31 PM EDT Associated Problem(s): AMA (advanced maternal age) multigravida 35+ I reviewed the ultrasound with her. The [...] of gestation for an evaluation of growth. documented in this encounter Plan of Treatment Upcoming Encounters Date Type Specialty Care Team Description 01/29/2023 Office Visit Gynecology Obstetrics Backer, CELY Kamara [address] [place] [address] 03/25/2023 Imaging Radiology 06/18/2023 Office Visit Family Medicine Colette Wagoner, DO [address] [place] [address] Scheduled Referrals Name Type Priority Associated Diagnoses Orde r Schedule MATERNAL MEDICINE REFERRAL OP Referral Within 10 days (routine) Multigravida of advanced maternal age in first trimester Ordered: 10/07/2022 Health Maintenance Due Date Last Done Comments [...] Additional history exists Lipid Panel 06/22/2027 06/22/2022, /0 07/2013, 11/19/2009 Cervical Cancer Screening 10/08/2027 HPV/Co-Test [...] Diagnosis Multigravida of advanced maternal age in second trimester- Primary documented in this encounter Advance Directives Documents on File Type Date Recorded Patient Precinct Police Captain Expl anation Power of Dorr Operator 12/06/2019 POWER OF A TTORNEY Latest Code Status on File Code Status Date Activated Date Inactivated Comments Full Code 02/01/2020 3:24 AM 02/03/2020 6:07 PM This order reflects the patients wishes and were consensually agreed upon. Care Teams Churn Operator Margarine Relationship Specialty Start Date End Date Colette Wagoner DO [address] [place] [address] PCP - General Family Medicine 11/25/21 documented as of this encounter
--- OUTSIDE RECORDS SUMMARY | 2023-05-14 08:59 | External Medical Summary ---
Author Name Unknown Address Unknown Organization K01:LABORATORY [facility] [place] - [address] [place] [address] Laboratory Report Ordering Provider Test Date Status FATOUMATA FABIAN 03/01/2023 07:58:32 Final Observation Date Value Abnormality Reference (Units ) Status TSH 03/01/2023 07:58:32 2.81 0.27-4.20 (uIU/mL) Final Performing Location [facility] - [address] [place] [address]
--- OUTSIDE RECORDS SUMMARY | 2023-05-14 08:59 | External Medical Summary ---
Author Name Unknown Address Unknown Organization K01:LABORATORY [facility] [place] [facility] - [address] [place] [address] Laboratory Report Ordering Provider Test Date Status MANJEET FABIANESVIN 03/01/2023 07:58:32 Final Observation Date Value Abnormality Reference (Units ) Status ABO 03/01/2023 07:58:32 A Final RH 03/01/2023 07:58:32 Negative Final RED BLOOD CELL ANTIBODY SCREEN 03/01/2023 07:58:32 Negative Final SPECIMEN EXPIRATION DATE 03/01/2023 07:58:32 03/04/2023 23:59 Final Performing Location LABORATORY [facility] [place] [facility] - [address] [place] [address]
--- OUTSIDE RECORDS SUMMARY | 2023-05-14 08:59 | External Medical Summary | Summary of Care ---
Author Name Unknown Organization [facility] Address [address] [place] [address] Phone [phone] Care Team Providers Care Analog Design Engineer Name Role Phone Celena Wagoner DO Primary Care Provider Reason for Visit * Reason Comments Medication Refill Encounter Details Date Type Department Care Team Description 12/13[facility] [address] [place] [address] Diego Aguillon DO [address] [facility] [place] [address] Primary insomnia Allergies No known active allergiesdocumented as of this encounter (statuses as of 12/16/2022) Medications Medication Sig Dispensed Refills Start Date [...] 0 Active LORazepam 0.5 MG Oral Tablet (Ativan)Indications :TOBY (generalized anxiety disorder) 90 Tablet 3 06/16/2022 [...] Active Citalopram Hydrobromide 40 MG Oral Tablet (CeleXA)Indications :Moderate episode of recurrent major depressive disorder (HCC) TAKE ONE TABLET BY MOUTH EVERY DAY 90 Tablet 3 07/13/2022 07/13/2023 Active traZODone HCl 50 MG Oral Tablet (Desyrel)Indication s:Primary insomnia TAKE ONE TABLET BY MOUTH EVERY DAY AT BEDTIME 90 Tablet 1 12/16/2022 12/16/2023 Active traZODone HCl 50 MG Oral Tablet (Desyrel)Indication s:Primary insomnia TAKE ONE TABLET BY MOUTH EVERY DAY AT BEDTIME 90 Tablet 1 07/13/2022 12/13/2022 Discontinued (Refill) documented as of this encounter (statuses as of 12/16/2022) Active Problems Problem Noted Date Supervision of [...] as of this encounter (statuses as of 12/16/2022) Resolved Problems Problem Noted Date Resolved Date [...] for 5+ years. She sees psychiatrist in [place] regularly and he approved this regimen for . Advised pt I would like her to taper off Ativan during . Continue Trazadone and Celexa for now. Obesity, Class II, BMI 35-39.9, isolated (see ac tual BMI) 11/18/2009 01/19/2020 Overview: Per Obesity Protocol, #19 depression 07/28/2019 documented as of this encounter (statuses as of 12/16/2022) Immunizations Name Administration Dates Next Due COVID-19 [...] encounter Miscellaneous Notes * Telephone Encounter - Celena Wagoner DO - 12/16/2022 9:57 AM EDTSigned Prescriptions: Disp Refills traZODone HCl 50 MG Oral Tablet (Desyrel) 90 Tab*1 Sig: TAKE ONE TABLET BY MOUTH EVERY DAY AT BEDTIME Authorizing Provider: CELENA WAGONER * Telephone Encounter - Tom Hennessy [facility] - 12/15/2022 8:15 PM EDT Pending Prescriptions: Disp Refills traZODone HCl 50 MG Oral Tablet (Desyrel) 90 Tab*1 Sig: TAKE ONE TABLET BY MOUTH EVERY DAY AT BEDTIME documented in this encounter Plan of Treatment Upcoming Encounters Date Type Specialty Care Team Description 12/21/2022 Telemedicine Maternal Medicine Bony [place], [place] [address] [address] 01/01/2023 Office Visit Gynecology Obstetrics Savannah Mcelroy CRNP [address] [place] [address] 01/22/2023 Office Visit Maternal Medicine Johana Valentin, DO [address] [place] [address] 01/22/2023 Imaging Radiology 06/18/2023 Office Visit Family Medicine Celena Wagoner, DO [address] [place] [address] Health Maintenance Due Date Last Done Comments [...] as of this encounter Visit Diagnoses Diagnosis Primary insomnia Persistent disorder of initiating or maintaining sleep documented in this encounter Advance Directives Documents on File Type Date Recorded 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 Care Teams Analog Design Engineer Relationship Specialty Start Date End Date Celena Wagoner DO [address] [place] [address] PCP - General Family Medicine 11/25/21 documented as of this encounter
--- OUTSIDE RECORDS SUMMARY | 2023-05-14 08:59 | External Medical Summary ---
Author Name Unknown Address Unknown Organization [id number][place] [place] [address] [place] [address] Laboratory Report Ordering Provider Test Date Status FATOUMATA FABIAN 03/01/2023 07:58:32 Final Observation Date Value Abnormality Reference (Units ) Status Folic Acid 03/01/2023 07:58:32 >20.0 >4.5 (ng/ mL) Final Performing Location [facility] [place] [address] [place] [address]
--- OUTSIDE RECORDS SUMMARY | 2023-05-14 08:59 | External Medical Summary ---
Author Name Unknown Address Unknown Organization [id number]:[facility] [place] [facility] [place] [address] [place] [address] Laboratory Report Ordering Provider Test Date Status FATOUMATA FABIAN 03/01/2023 07:58:32 Final Observation Date Value Abnormality Reference (Units ) Status Creatinine 03/01/2023 07:58:32 0.6 0.5-1.0 (mg/dL) Final Glomerular filtration rate/1.73 sq M.predicted [Volume Rate/Area] in Serum, Plasma or Blood by Creatinine-based formula (CKD-EPI) 03/01/2023 07:58:32 >90 >=60 (mL/min) Final eGFR is calculated based on the CKD-EPI 2020 equation Performing Location [facility] [place] [facility] [place] [address] [place] [address]
--- OUTSIDE RECORDS SUMMARY | 2023-05-14 08:59 | External Medical Summary ---
Author Name Unknown Address Unknown Organization [id number]:LABORATORY [facility] - [address] [place] [address] Laboratory Report Ordering Provider Test Date Status RUIBACKER 03/01/2023 07:58:32 Final Observation Date Value Abnormality Reference (Units ) Status SYNC LEUKOCYTES IN BLOOD BY AUTOMATED COUNT 03/01/2023 07:58:32 9.54 4.00-10.80 (K/uL) Final Segs 03/01/2023 07:58:32 62.1 40.0-75.0 (%) Final Lymphs % 03/01/2023 07:58:32 29.2 18.0-42.0 (%) Final Monos 03/01/2023 07:58:32 7.1 1.0-11.0 (%) Final Eosinophils 03/01/2023 07:58:32 0.8 0.0-6.0 (%) Final Basos 03/01/2023 07:58:32 0.3 0.0-2.0 (%) Final Immature Granulocyte, Percent 03/01/2023 07:58:32 0.5 0.0-2.0 (%) Final Absolute Segs 03/01/2023 07:58:32 5.91 1.80-7.70 (K/uL) Final Lymphs, absolute 03/01/2023 07:58:32 2.79 1.00-4.80 (K/ul) Final Monos, Abs 03/01/2023 07:58:32 0.68 0.00-1.10 (K/uL) Final Eos, Abs 03/01/2023 07:58:32 0.08 0.00-0.70 (K/uL) Final Basos, Abs 03/01/2023 07:58:32 0.03 0.00-0.20 (K/uL) Final Immature Granulocytes, Number 03/01/2023 07:58:32 0.05 0.00-0.20 (K/uL) Final Performing Location LAB[facility]ATORY [facility] - [address] [facility] [address]
--- OUTSIDE RECORDS SUMMARY | 2023-05-14 08:59 | External Medical Summary ---
Author Name Unknown Address Unknown Organization [id number]:LAB[facility]ATORY [facility] [address] - [address] [place] [address] Laboratory Report Ordering Provider Test Date Status FATOUMATA FABIAN 03/01/2023 07:58:32 Final Based on ACOG guideline, ges tational diabetes mellitus is diagnosed when any of the following is met:
Fasting is greater than or equal to 95 mg/dL
1 hour is greater than or equal to 180 mg/dL
2 hour is greater than or equal to 155 mg/dL
3 hour is greater than or equal to 140 mg/dL Observation Date Value Abnormality Reference (Units ) Status Glucose, fasting 03/01/2023 07:58:32 75 70- 94 (mg/dL) Final Performing Location LAB[facility]ATORY [facility] [address] 0 - [address] [place] [address]
--- OUTSIDE RECORDS SUMMARY | 2023-05-14 08:59 | External Medical Summary ---
Author Name Unknown Address Unknown Organization [id number]:LABORATORY [facility] [place] [address] - [address] [place] [address] Laboratory Report Ordering Provider Test Date Status RUIFATOUMATA 03/01/2023 08:55:56 Final Observation Date Value Abnormality Reference (Units ) Status Glucose [Mass/volume] in Serum or Plasma --1 hour post dose glucose 03/01/2023 08:55:56 106 70-179 (mg/dL) Final Performing Location LABORATORY [facility] [place] [address] - [address] [place] [address]
--- OUTSIDE RECORDS SUMMARY | 2023-05-14 08:59 | External Medical Summary | Summary of Care ---
Author Name Unknown Organization [facility] Address [address] [place] [address] Phone [phone] Care Team Providers Care Joint Filler Name Role Phone Colette Wagoner DO Primary Care Provider Reason for Visit * Reason Comments Genetic Counseling * Evaluate & Treat - Unlimited Visits (Within 10 days (routine)) - Authorized Specialty Diagnoses / Procedures Referred By Aleah pinto Referred To Contact Medical Genetics / Hematology Oncology Diagnoses Genetic testing Halley Kirk CRNP [address] [place] [address] Referral ID Status Reason Start Date Expiration Date Visits Requested Visits Authorized [id number] Authorized Specialty Services Required 12/15/2022 999 999 Encounter Details Date Type Department Care Team Description 12/21/2022 Telemedicine Youth Services Specialist Obstetrics Maternal Medicine, [place] [address] [address] Bony [place], [place] [address] [address] Abnormal chromosomal and genetic finding on screening of mother*; Encounter for procreative genetic counseling; Multigravida of advanced maternal age in second trimester; Supervision of high-risk , second trimester Allergies No known active allergiesdocumented as of this encounter (statuses as of 12/25/2022) Medications Medication Sig Dispensed Refills Start Date [...] as of this encounter (statuses as of 12/25/2022) Active Problems Problem Noted Date Supervision of [...] as of this encounter (statuses as of 12/25/2022) Resolved Problems Problem Noted Date Resolved Date [...] for 5+ years. She sees psychiatrist in [place] regularly and he approved this regimen for . Advised pt I would like her to taper off Ativan during . Continue Trazadone and Celexa for now. Obesity, Class II, BMI 35-39.9, isolated (see ac tual BMI) 11/18/2009 01/19/2020 Overview: Per Obesity Protocol, #19 depression 07/28/2019 documented as of this encounter (statuses as of 12/25/2022) Immunizations Name Administration Dates Next Due COVID-19 mRNA, LNP-s, No Pre serve, 2-Dose Series (Moderna) 10/19/2020,09/21/2020 Covid-19 Mrna, Lnp-s, No Pre serve, Booster (Moderna) 06/13/2021 Covid-19, Mrna, Lnp-s, Pf, B ivalent, 30 Mcg, IM, 12 yrs and above ([employer]) 03/29/2022 MMR - Measles/Mumps/Rubella Vaccine 09/23/2018 Seasonal [...] as of this encounter Progress Notes * FABIO Tamayo - 12/25/2022 2:13 PM EDT Images from the original note were not included. * Bony Pitt, - 12/21/2022 9:00 AM EDT Patient location: HOME. I was not in a hospital or clinic location. After connecting through [employer], patient was verified with two unique identifiers. 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 The patient was unaccompanied. [facility] JENN[facility]ER was present with permission. Eloisa Wilson presents [...] Team Description 01/01/2023 Office Visit Gynecology Obstetrics BackerSavannah CRNP [address] [place] [address] 01/11/2023 Office Visit [facility] Medicine [facility] [address] 01/11/2023 Imaging Radiology 06/18/2023 Office Visit Family Medicine Colette Wagoner DO [address] [place] [address] Scheduled Referrals Name Type Priority Associated Diagnoses Orde r Schedule MATERNAL MEDICINE REFERRAL OP Referral Within 10 days (routine) Abnormal findings on screening Ordered: 12/15/2022 GENETICS REFERRAL OP Referral Within 10 days [...] Documents on File Type Date Recorded 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 Care Teams Joint Filler Relationship Specialty Start Date End Date Colette Wagoner DO [address] [place] [address] PCP - General Family Medicine 11/25/21 documented as of this encounter
--- OUTSIDE RECORDS SUMMARY | 2023-05-14 08:59 | External Medical Summary ---
Author Name Unknown Address Unknown Organization K01:LABORATORY [place] [address] [place] [address] Laboratory Report Ordering Provider Test Date Status FATOUMATA FABIAN 03/01/2023 07:58:32 Final Observation Date Value Abnormality Reference (Units ) Status WBC, Total 03/01/2023 07:58:32 9.54 4.00-10.8 0 (K/uL) Final RBC 03/01/2023 07:58:32 3.46 3.85-5.15 (M/uL) Final Hemoglobin 03/01/2023 07:58:32 10.9 Below low normal 12 .0-15.3 (g/dL) Final Anemia reflex testing trigge rs on a HGB < 12.0 for Females and HGB < 13.0 for Males in accordance with the WHO Anemia Guidelines
Anemia reflex testing triggers on a HGB < 12.0 for Females and HGB < 13.0 for Males in accordance with the WHO Anemia Guidelines HCT 03/01/2023 07:58:32 33.9 Below low normal 36. 0-45.2 (%) Final MCV 03/01/2023 07:58:32 98.0 81.5-97.5 (fL) Final MCH 03/01/2023 07:58:32 31.5 27.0-34.0 (pg) Final MCHC 03/01/2023 07:58:32 32.2 32.0-36.0 (g/dL) Final RDW 03/01/2023 07:58:32 12.6 11.5-15.5 (%) Final Platelets 03/01/2023 07:58:32 189 140-400 (K /uL) Final MPV 03/01/2023 07:58:32 10.0 6.6-11.1 ( fL) Final Nucleated erythrocytes/100 leukocytes [Ratio] in Blood by Automated count 03/01/2023 07:58:32 0 <=0 (/100 WBCs) Final Performing Location LABORATORY [place] [address] [address] [facility] [place] [address]
--- OUTSIDE RECORDS SUMMARY | 2023-05-14 08:59 | External Medical Summary ---
Author Name Unknown Address Unknown Organization [id number]:[facility] [place] [facility] [address] [facility] [address] Laboratory Report Ordering Provider Test Date Status FATOUMATA FABIAN 03/01/2023 07:58:32 Final Observation Date Value Abnormality Reference (Units ) Status Iron 03/01/2023 07:58:32 79 33-151 (ug /dL) Final Iron-binding capacity 03/01/2023 07:58:32 386 250-425 (ug/dL) Final Transferrin Sat % 03/01/2023 07:58:32 20 15 -55 (%) Final Performing Location LAB[facility] [place] [address] [place] [address]
--- OUTSIDE RECORDS SUMMARY | 2023-05-14 08:59 | External Medical Summary | Summary of Care ---
Author Name Unknown Organization [facility] Address [address] [place] [address] Phone [phone] Care Team Providers Care Slide Fasteners Inspector Name Role Phone Colette Wagoner DO Primary Care Provider Reason for Visit * Reason Comments Return Visit Encounter Details Date Type Department Care Team Description 01/29/2023 Office Visit Gynecology/Obstetrics [facility] [address] [place] [address] Savannah Mcelroy CRNP [address] [place] [address] Supervision of high risk in second trimester*; Rh negative status during in second trimester; Multigravida of advanced maternal age in second trimester; Depression complicating , antepartum Allergies No known active allergiesdocumented as of this encounter (statuses as of 01/29/2023) Medications Medication Sig Dispensed Refills Start Date [...] by mouth in the morning. 0 Active LORazepam 0.5 MG Oral Tablet (Ativan)Indications :TOBY (generalized anxiety disorder) 90 Tablet 3 06/16/2022 01/29/2023 Discontinued (Medication List Clean Up) Vitamin D 50 MCG (2000 UT) Oral Capsule Take 2,000 Units by mouth in the morning. 0 01/29/2023 Discontinued (Medication List Clean Up) Co Q 10 100 MG Oral Capsule Take 1 Capsule by mouth in the morning. 0 01/29/2023 Discontinued (Medication List Clean Up) Vitamin E 400 UNIT Oral Capsule Take 1 Capsule by mouth in the morning. 0 01/29/2023 Discontinued (Medication List Clean Up) documented as of this encounter (statuses as of 01/29/2023) Active Problems Problem Noted Date Depression complicating [...] as of this encounter (statuses as of 01/29/2023) Resolved Problems Problem Noted Date Resolved Date [...] for 5+ years. She sees psychiatrist in [place] regularly and he approved this regimen for . Advised pt I would like her to taper off Ativan during . Continue Trazadone and Celexa for now. Obesity, Class II, BMI 35-39.9, isolated (see ac tual BMI) 11/18/2009 01/19/2020 Overview: Per Obesity Protocol, #19 depression 07/28/2019 documented as of this encounter (statuses as of 01/29/2023) Immunizations Name Administration Dates Next Due COVID-19 mRNA, LNP-s, No Pre serve, 2-Dose Series (Moderna) 10/19/2020,09/21/2020 Covid-19 Mrna, Lnp-s, No Pre serve, Booster (Moderna) 06/13/2021 Covid-19, Mrna, Lnp-s, Pf, B ivalent, 30 Mcg, IM, 12 yrs and above (Pfizer) 03/29/2022 MMR - Measles/Mumps/Rubella Vaccine 09/23/2018 Seasonal Influenza, PF, 6 mo ns & Above, IM , (Flulaval) 04/30/2021,04/05/2020,05/03/2019 Seasonal Influenza, Quadriva lent, No Preserve, [...] Sign Reading Time Taken Comments Blood Pressure 102/62 01/29/2023 1:43 PM EDT Pulse - - Temperature - - Respiratory Rate - - Oxygen Saturation - - Inhaled Oxygen Concentration - - Weight 80.3 kg (177 lb) 01/29/2023 1:43 PM EDT Height - - Body Mass Index 29.45 01/01/2023 1:47 PM EDT documented in this encounter Patient Instructions * Patient Instructions* CELY Darby - 01/29/2023 1:53 PM EDT Round Ligament Pain: Causes and Treatment Round ligament pain is most common during the 2nd and 3rd trimesters. Women may have a sharp pain in their abdomen or hip area that is either on one side or both. Some women even report pain that extends into the groin area. Round ligament pain is considered a normal part of as your body goes through many different changes. What causes round ligament pain? The round ligament supports the uterus and stretches during . It connects the front portion of the uterus to the groin. These ligaments contract and relax like muscles, but much more slowly. Any movement (including going from a sitting to standing position quickly, laughing, or coughing) that stretches these ligaments by making them contract quickly, can cause a woman to experience pain.Round ligament pain should only last for a few seconds. Stretching is the best way to loosen things up and prevent round ligament pain. Here are our top round ligament pain stretches to get you started: #1 CAT-COW Start on your hands and knees, shoulders above wrists and hips above knees. Breathe in and drop your stomach down, arching your back and looking upward. Then, breathe out and round your upper back toward the ceiling, allowing your head to drop and face your stomach. #2 HIP FLEXOR STRETCH In all fours position with your arm resting on a chair or birthing ball, bring the right leg forward while extending/straightening the left leg back until you feel a stretch in the front of the left thigh. Hold the position for 5-10 seconds. Repeat on the opposite side. #3 SIDE LYING SAVASANA Lie on your left side in a position, tuck your left arm beneath your head, and place a pillowbetween your legs to relieve pressure on your lower back. Flex your hips and remain in this position for several minutes. Inhale deeply as you stretch. #4 THE PELVIC CLOCK Sit on a birthing ball or chair with your feet flat on the floor. Bring your hands to your hips so you can feel the movement in your pelvis as you stretch. Now, imagine a clock resting on your pelvis--with your navel at 12 oclock and pubic bone at 6 oclock. Engage your abs and lengthen your spine. Inhale and tilt your pelvis toward a 3 oclock position. Continue on the inhale and move around the clock, creating a small arch in your lower back. Exhale and bring your pelvis to 9 oclock. Continue your exhale until you reach a neutral 12 oclock position. #5 BUTTERFLY STRETCH Sit upright on a firm surface. Place the soles of your feet together and pulse your legs up and down, like the wings of a butterfly. You should feel a stretch in your inner thighs. For an even deeperstretch, place your hands on your knees for resistance. Other Ways to Relieve Round Ligament Pain While round ligament pain stretches are the best way to reduce pain, there are a few other things you can try to alleviate the discomfort : A belly band to give your bump some extra support Hydration to improve circulation to your growing tissue Rest to allow your muscles to recover from any movement Massage to give that area some extra TLC Acetaminophen to get some medicated pain relief documented in this encounter Progress Notes * Virginie Womack LPN - 01/29/2023 1:45 PM EDT 23w2d Denies vaginal bleeding/rom + movement ? Round ligament pain Noticing some urinary incontinence- doing Kegel exercises * CELY Darby - 01/29/2023 1:40 PM EDT 23w 2d No cramping/bleeding. + movement. Completed anatomy scan with [facility]. Scheduled to return for growth u/s in March. Labs ordered for next visit, including 3 hr GTT. Advised to fast before this. +round ligament pain, provided w/exercises and comfort measures. Some urinary incontinence, doing Kegels. Provided information on pelvic floor PT. 4 week return CELY Finn documented in this encounter Plan of Treatment Upcoming Encounters Date Type Specialty Care Team Description 03/01/2023 Laboratory Laboratory Travis Niño [address] [facility] [place] [address] 03/01/2023 Office Visit Gynecology Obstetrics Lillie Buchanan CRNP [address] [place] [address] 03/25/2023 Imaging Radiology 03/25/2023 Office Visit Maternal Medicine Krishna Palafox MD [address] [place] [address] 06/18/2023 Office Visit Family Medicine Colette Wagoner, DO [address] [place] [address] Scheduled Orders Name Type Priority Associated Diagnoses Orde r Schedule GESTATIONAL GLUCOSE TOLERANCE, 3 HOUR Lab Routine Supervision of high risk in second trimester Expected: 02/12/2023 (Approximate), Expires: 01/30/2024 TYPE AND SCREEN Lab Routine Rh negative status during in second trimester Expected: 02/12/2023 (Approximate), Expires: 03/01/2024 CBC WITH WBC DIFFERENTIAL AND ANEMIA REFLEX WORKUP Lab Routine Supervision of high risk in second trimester Expected: 02/12/2023 (Approximate), Expires: 01/30/2024 SYPHILIS ANTIBODY SCREEN WITH REFLEX TO RPR Lab Routine Supervision of high risk in second trimester Expected: 02/12/2023 (Approximate), Expires: 01/30/2024 Health Maintenance Due Date Last Done Comments [...] Diagnosis Supervision of high risk in second trimester- Primary Unspecified high-risk Rh negative status during in second trimester Multigravida of advanced maternal age in second trimester Depression complicating , antepartum Mental disorders of mother, antepartum documented in this encounter Advance Directives Documents on File Type Date Recorded 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 Care Teams Slide Fasteners Inspector Relationship Specialty Start Date End Date Colette Wagoner DO [address] [facility] [address] PCP - General Family Medicine 11/25/21 documented as of this encounter
--- OUTSIDE RECORDS SUMMARY | 2023-05-14 08:59 | External Medical Summary ---
Author Name Unknown Address Unknown Organization K01:LABORATORY [facility] [place] - [address] [place] [address] Laboratory Report Ordering Provider Test Date Status FATOUMATA FABIAN 03/01/2023 07:58:32 Final Observation Date Value Abnormality Reference (Units ) Status Ferritin 03/01/2023 07:58:32 33 13-150 (ng /mL) Final Postmenopausal women have hi gher ferritin levels than pre-menopausal women. The above reference interval is based on pre-menopausal women. Performing Location LABORATORY [facility] [place] - [address] [place] [address]
--- OUTSIDE RECORDS SUMMARY | 2023-05-14 08:59 | External Medical Summary ---
Author Name Unknown Address Unknown Organization [id number]:LAB[facility]ATORY [facility] [address] [place] [address] Laboratory Report Ordering Provider Test Date Status FATOUMATA FABIAN 03/01/2023 10:53:43 Final Observation Date Value Abnormality Reference (Units ) Status Glucose [Mass/volume] in Serum or Plasma --3 hours post dose glucose 03/01/2023 10:53:43 90 70-139 (mg/dL) Final Performing Location [facility] [address] [place] [id number]
--- OUTSIDE RECORDS SUMMARY | 2023-05-14 08:59 | External Medical Summary | Summary of Care ---
Author Name Unknown Organization [facility] Address [address] [place] [address] Phone [phone] Care Team Providers Care Linseed Oil Press Tender Name Role Phone Castillonasir Colette Rowley DO Primary Care Provider Reason for Visit * Reason Comments Ultrasound * Evaluate & Treat - Unlimited Visits (Within 10 days (routine)) - Authorized Specialty Diagnoses / Procedures Referred By Aleah pinto Referred To Contact Obstetrics/Gynecology / Maternal Medicine Diagnoses Multigravida of advanced maternal age in first trimester Lillie Buchanan CRNP [address] [place] [address] Referral ID Status Reason Start Date Expiration Date Visits Requested Visits Authorized [id number] Authorized Specialty Services Required 10/07/[phone] Encounter Details Date Type Department Care Team Description 01/11/2023 Office Visit Manager Diesel Obstetrics Maternal Medicine, [place] [address] [place] [address] Krishna Palafox MD [address] [place] [address] Multigravida of advanced maternal age in second [...] for 5+ years. She sees psychiatrist in [place] regularly and he approved this regimen for [...] Wilson is at 20w5d who presents to [facility] for an ultrasound and follow-up of [...] Wilson was instructed to notify her primary psych assistant if she felt regular contractions (approximately every [...] Backer, CELY Kamara [address] [place] [address] 03/25/2023 Imaging Radiology 06/18/2023 Office Visit Family Medicine Colette Wagoner, DO [address] [place] [address] Scheduled Referrals Name Type Priority Associated Diagnoses [...] Documents on File Type Date Recorded Patient Dynamo Repairer Expl anation Power of Oyster Culturist 12/06/2019 POWER OF A TTORNEY Latest Code Status on File Code Status Date Activated Date Inactivated Comments Full Code 02/01/2020 3:24 AM 02/03/2020 6:07 PM This order reflects the patients wishes and were consensually agreed upon. Care Teams Linseed Oil Press Tender Relationship Specialty Start Date End Date Colette Wagoner DO [address] [place] [address] PCP - General Family Medicine 11/25/21 documented as of this encounter
--- OUTSIDE RECORDS SUMMARY | 2023-05-14 08:59 | External Medical Summary | Summary of Care ---
Author Name Unknown Organization [facility] Address [address] [place] [address] Phone [phone] Care Team Providers Care Wood Drilling Machine Operator Name Role Phone Colette Wagoner DO Primary Care Provider Reason for Visit * Reason Comments Return Visit Encounter Details Date Type Department Care Team Description 01/01/2023 Office Visit Gynecology/Obstetrics Carin Niño [address] [place] [address] Danette Alaniz PA-C [address] [place] [address] Multigravida of advanced maternal age in second trimester*; Rh negative status during in second trimester Allergies No known active allergiesdocumented as of this encounter (statuses as of 01/01/2023) Medications Medication Sig Dispensed Refills Start Date [...] as of this encounter (statuses as of 01/01/2023) Active Problems Problem Noted Date Supervision of [...] as of this encounter (statuses as of 01/01/2023) Resolved Problems Problem Noted Date Resolved Date [...] for 5+ years. She sees psychiatrist in [place] regularly and he approved this regimen for . Advised pt I would like her to taper off Ativan during . Continue Trazadone and Celexa for now. Obesity, Class II, BMI 35-39.9, isolated (see ac tual BMI) 11/18/2009 01/19/2020 Overview: Per Obesity Protocol, #19 depression 07/28/2019 documented as of this encounter (statuses as of 01/01/2023) Immunizations Name Administration Dates Next Due COVID-19 [...] Sign Reading Time Taken Comments Blood Pressure 100/66 01/01/2023 1:47 PM EDT Pulse - - Temperature - - Respiratory Rate - - Oxygen Saturation - - Inhaled Oxygen Concentration - - Weight 78.9 kg (174 lb) 01/01/2023 1:47 PM EDT Height 165.1 cm (5' 5") 01/01/2023 1:47 PM EDT Body Mass Index 28.96 01/01/2023 1:47 PM EDT documented in this encounter Progress Notes * Danette Alaniz PA-C - 01/01/2023 4:50 PM EDT 19w2d Doing well, s/p MFM appointment after NIPT low fraction x 2. Has anatomy ultrasound scheduledin about 10 days with MFM. Denies leaking/bleeding/contractions. Affirms FM. She desires permanent sterilization with tubal following delivery. Has had one prior vaginal delivery. Explained process PP, not done in hospital typically directly after delivery. We discussed appointment with MD for counseling and scheduling procedure post . RTC in 4 weeks Danette Alaniz PA-C documented in this encounter Nursing Notes * Radha Toledo LPN - 01/01/2023 1:53 PM EDT 19w2d Denies concerns. Upcoming anatomy with MFM. documented in this encounter Plan of Treatment Upcoming Encounters Date Type Specialty Care Team Description 01/11/2023 Office Visit Maternal Medicine Krishna Palafox MD [address] [place] [facility] [place] [address] 01/11/2023 Imaging Radiology 01/29/2023 Office Visit Gynecology Obstetrics Backer, CELY Kamara [address] [place] [address] 06/18/2023 Office Visit Family Medicine Colette Wagoner, DO [address] [place] [address] Health Maintenance Due Date Last Done Comments [...] advanced maternal age in second trimester- Primary Rh negative status during in second trimester documented in this encounter Advance Directives Documents on File Type Date Recorded Patient Rope Maker Expl anation Power of Oleo Hasher And Renderer 12/06/2019 POWER OF A TTORNEY Latest Code Status on File Code Status Date Activated Date Inactivated Comments Full Code 02/01/2020 3:24 AM 02/03/2020 6:07 PM This order reflects the patients wishes and were consensually agreed upon. Care Teams Wood Drilling Machine Operator Relationship Specialty Start Date End Date Colette Wagoner DO [address] [place] [address] PCP - General Family Medicine 11/25/21 documented as of this encounter
--- OUTSIDE RECORDS SUMMARY | 2023-05-14 08:59 | External Medical Summary ---
Author Name Unknown Address Unknown Organization [id number]:LABORATORY [facility] - [address] [place] [address] Laboratory Report Ordering Provider Test Date Status RUIFATOUMATA 03/01/2023 07:58:32 Final Observation Date Value Abnormality Reference (Units ) Status Treponema pallidum Ab [Presence] in Serum by Immunoassay 03/01/2023 07:58:32 Nonreactive Nonreactive Final No serologic evidence of syp hilis. No additional testing clinicially indicated at this time. Consider repeat testing in 2-4 weeks if acute or primary syphilis is suspected. Performing Location [facility] [place] - [address] [place] [address]
--- OUTSIDE RECORDS SUMMARY | 2023-05-14 08:59 | External Medical Summary | Summary of Care ---
Author Name Unknown Organization [facility] Address [address] [place] [address] Phone [phone] Care Team Providers Care Working Manager Name Role Phone Rizwana Colette Rowley DO Primary Care Provider Encounter Details Date Type Department Care Team Description 11/23/2022 Telephone Gynecology/Obstetrics [facility] [address] [facility] [place] [address] Lizzy [place], [facility] [address] [facility] [place] [id number] Allergies No known active allergiesdocumented as of this encounter (statuses as of 12/09/2022) Medications Medication Sig Dispensed Refills Start Date [...] 0 Active LORazepam 0.5 MG Oral Tablet (Ativan)Indications:GA D (generalized anxiety disorder) 90 Tablet 3 06/16/2022 Active Vitamin D 50 MCG (2000 UT) Oral Capsule Take 2,000 Units by mouth in the morning. 0 Active Co Q 10 100 MG Oral Capsule Take 1 Capsule by mouth in the morning. 0 Active Vitamin E 400 UNIT Oral Capsule Take 1 Capsule by mouth in the morning. 0 Active traZODone HCl 50 MG Oral Tablet (Desyrel)Indications:P rimary insomnia TAKE ONE TABLET BY MOUTH AT BEDTIME 90 Tablet 1 07/13/2022 Active Citalopram Hydrobromide 40 MG Oral Tablet (CeleXA)Indications:Mo derate episode of recurrent major depressive disorder (HCC) TAKE ONE TABLET BY MOUTH EVERY DAY 90 Tablet 3 07/13/2022 Active documented as of this encounter (statuses as of 12/09/2022) Active Problems Problem Noted Date Supervision of [...] as of this encounter (statuses as of 12/09/2022) Resolved Problems Problem Noted Date Resolved Date [...] for 5+ years. She sees psychiatrist in [place] regularly and he approved this regimen for . Advised pt I would like her to taper off Ativan during . Continue Trazadone and Celexa for now. Obesity, Class II, BMI 35-39.9, isolated (see ac tual BMI) 11/18/2009 01/19/2020 Overview: Per Obesity Protocol, #19 depression 07/28/2019 documented as of this encounter (statuses as of 12/09/2022) Immunizations Name Administration Dates Next Due COVID-19 [...] encounter Miscellaneous Notes * Telephone Encounter - Virginie Womack LPN - 11/23/2022 7:25 AM EDT See other encounter. * Telephone Encounter - Virginie Womack LPN - 11/23/2022 7:14 AM EDT ----- Message from Neetu Khan CNM sent at 11/21/2022 11:39 AM EDT ----- Please notify patient: Low fraction: Test Not Performed. Unable to report due to low fraction. Low fraction can be sample-specific, or can be associated with other factors such as maternal obesity. She can consider repeating. documented in this encounter Plan of Treatment Upcoming Encounters Date Type Specialty Care Team Description 01/01/2023 Office Visit Gynecology Obstetrics Backer, CELY Kamara [address] [place] [address] 01/22/2023 Office Visit Maternal Medicine Johana Valentin, DO [address] [facility] [place] [address] 01/22/2023 Imaging Radiology 06/18/2023 Office Visit Family Medicine Colette Wagoner, DO [address] [facility] [place] [address] Health Maintenance Due Date Last Done Comments [...] Documents on File Type Date Recorded Patient Exchange Teller Expl anation Power of Soaker 12/06/2019 POWER OF A TTORNEY Latest Code Status on File Code Status Date Activated Date Inactivated Comments Full Code 02/01/2020 3:24 AM 02/03/2020 6:07 PM This order reflects the patients wishes and were consensually agreed upon. Care Teams Working Manager Relationship Specialty Start Date End Date Colette Wagoner DO [address] [place] [address] PCP - General Family Medicine 11/25/21 documented as of this encounter
--- OUTSIDE RECORDS SUMMARY | 2023-05-14 08:59 | External Medical Summary | Summary of Care ---
Author Name Unknown Organization [facility] Address [address] [place] [address] Phone [phone] Care Team Providers Care Carbon Lamp Cleaner Name Role Phone Colette Wagoner DO Primary Care Provider Reason for Referral * Evaluate & Treat - Unlimited Visits (Within 10 days (routine)) - Authorized Specialty Diagnoses / Procedures Referred By Aleah pinto Referred To Contact Medical Genetics / Hematology Oncology Diagnoses Genetic testing Halley Kirk CRNP [address] [place] [address] Referral ID Status Reason Start Date Expiration Date Visits Requested Visits Authorized [id number] Authorized Specialty Services Required 12/15/[phone] Question Answer Referral Priority Within 10 days (routine) Is this referral request related to one of the following genetics sub-specialties? If unsure of category, use Medical Genetics Ask-A-Doc. /Preconception Reason for Visit * Reason Onset Date Comments Referral 12/15/2022 Encounter Details Date Type Department Care Team Description 12/15/2022 Telephone Electro Mechanical Assembler Obstetrics Maternal Medicine, [place] [address] [place], [place] [id number] [place], Nurse Electro Mechanical Assembler [facility] [address] [place], [place] [phone] Referral Allergies No known active allergiesdocumented as of this encounter (statuses as of 12/15/2022) Medications Medication Sig Dispensed Refills Start Date [...] DAY AT BEDTIME 90 Tablet 1 07/13/2022 07/13/2023 Active Citalopram Hydrobromide 40 MG Oral Tablet (CeleXA)Indications:M oderate episode of recurrent major depressive disorder (HCC) TAKE ONE TABLET BY MOUTH EVERY DAY 90 Tablet 3 07/13/2022 07/13/2023 Active documented as of this encounter (statuses as of 12/15/2022) Active Problems Problem Noted Date Supervision of [...] as of this encounter (statuses as of 12/15/2022) Resolved Problems Problem Noted Date Resolved Date [...] for 5+ years. She sees psychiatrist in [place] regularly and he approved this regimen for . Advised pt I would like her to taper off Ativan during . Continue Trazadone and Celexa for now. Obesity, Class II, BMI 35-39.9, isolated (see ac tual BMI) 11/18/2009 01/19/2020 Overview: Per Obesity Protocol, #19 depression 07/28/2019 documented as of this encounter (statuses as of 12/15/2022) Immunizations Name Administration Dates Next Due COVID-19 [...] encounter Miscellaneous Notes * Telephone Encounter - FABIO Craig - 12/15/2022 4:18 PM EDT Called and spoke to patient regarding recent referral. Scheduled a genetic counseling appointment for the patient. MyG sent with appointment details. Respectfully, Janet Aldrich Genetic Counseling Consumer Experience Consultant Maternal Medicine/Transition Clinic For further questions call the Genetic Counselor at + . * Telephone Encounter - Zara Ponce, MED ASSIST - 12/15/2022 2:53 PM EDT Estimated Date of Delivery: 05/26/23 Patient already scheduled for follow-up 01/22/23. Genetic referral placed due to indication of low fraction x2 on NIPT. Referring Provider: CELY Coley documented in this encounter Plan of Treatment Upcoming Encounters Date Type Specialty Care Team Description 12/21/2022 Telemedicine Maternal Medicine Bony Pitt, MS [address] [address] 01/01/2023 Office Visit Gynecology Obstetrics BackerSavannah CRNP [address] [place] [address] 01/22/2023 Office Visit Maternal Medicine Johana Valentin, DO [address] [place] [address] 01/22/2023 Imaging Radiology 06/18/2023 Office Visit Family Medicine Colette Wagoner, DO [address] [place] [address] Scheduled Referrals Name Type Priority Associated Diagnoses [...] as of this encounter Visit Diagnoses Diagnosis Genetic testing- Primary Other investigation and testing for procreative management documented in this encounter Advance Directives Documents on File Type Date Recorded Patient New Account Interviewer Expl anation Power of Party Bus Driver 12/06/2019 POWER OF A TTORNEY Latest Code Status on File Code Status Date Activated Date Inactivated Comments Full Code 02/01/2020 3:24 AM 02/03/2020 6:07 PM This order reflects the patients wishes and were consensually agreed upon. Care Teams Carbon Lamp Cleaner Relationship Specialty Start Date End Date Colette Wagoner DO [address] [place] [address] PCP - General Family Medicine 11/25/21 documented as of this encounter
--- OUTSIDE RECORDS SUMMARY | 2023-05-14 08:59 | External Medical Summary | Summary of Care ---
Author Name Unknown Organization [facility] Address [address] [place] [address] Phone [phone] Care Team Providers Care Surface Grinding Machine Hand Name Role Phone Colette Wagoner DO Primary Care Provider Reason for Visit * Reason Comments Outpatient Testing Encounter Details Date Type Department Care Team Description 03/01/2023 Laboratory Laboratory, [facility] [address] [place] [phone] [facility] [address] [place] [address] Supervision of high risk in second trimester; [...] for 5+ years. She sees psychiatrist in [place] regularly and he approved this regimen for [...] Date Type Specialty Care Team Description 03/01/2023 Office Visit Gynecology Obstetrics Lillie Buchanan CRNP [address] [place] [address] Rh negative status during *; AMA (advanced maternal age) multigravida 35+; , supervision, high-risk; Depression complicating , antepartum; Need for prophylactic vaccination and inoculation against influenza 03/25/2023 Imaging Radiology 03/25/2023 Office Visit Maternal Medicine Krishna Palafox MD [address] [place] [address] 06/18/2023 Office Visit Family Medicine Colette Wagoner DO [address] [place] [address] Pending Results Name Type Priority Associated Diagnoses [...] in second trimester 03/01/2023 7:58 AM EDT Scheduled Orders Name Type Priority Associated Diagnoses Orde r Schedule 100-G GESTATIONAL GLUCOSE, 1 HOUR Lab Routine Supervision of high risk in second trimester Ordered: 03/01/2023 Health Maintenance Due Date Last Done Comments Hepatitis B (1 of 3 - 3-dose series) 1980 Depression Screening 06/20/2020 06/20/2019 Mammogram 12/18/2022 12/18/2021 Influenza Vaccine [...] Visit Diagnoses Diagnosis Rh negative status during - Primary Rhesus isoimmunization unspecified as to episode of care in AMA (advanced maternal age) multigravida 35+ Elderly multigravida unspecified as to episode of care or not applicable , supervision, high-risk Unspecified high-risk Depression complicating , antepartum Mental disorders of mother, antepartum Need for prophylactic vaccination and inoculation against influenza Supervision of high risk in second trimester Unspecified high-risk Rh negative status during in second trimester documented in this encounter Advance Directives Documents on File Type Date Recorded Patient Outside Parts Sales Expl anation Power of Still Operator Gin 12/06/2019 POWER OF A TTORNEY Latest Code Status on File Code Status Date Activated Date Inactivated Comments Full Code 02/01/2020 3:24 AM 02/03/2020 6:07 PM This order reflects the patients wishes and were consensually agreed upon. Care Teams Surface Grinding Machine Hand Relationship Specialty Start Date End Date Colette Wagoner DO [address] [place] [address] PCP - General Family Medicine 11/25/21 documented as of this encounter
--- OUTSIDE RECORDS SUMMARY | 2023-05-14 09:00 | External Medical Summary | Summary of Care ---
Author Name Unknown Organization [facility] Address [address] [place] [address] Phone [phone] Care Team Providers Care Supervisor Cutting Department Name Role Phone Colette Wagoner DO Primary Care Provider Reason for Visit * Reason Comments Outpatient Testing Encounter Details Date Type Department Care Team Description 12/01/2022 Laboratory Laboratory, [facility] [address] [place] [phone] [facility] [address] [place] [address] Multigravida of advanced maternal age in second trimester Allergies No known active allergiesdocumented as of this encounter (statuses as of 12/01/2022) Medications Medication Sig Dispensed Refills Start Date [...] as of this encounter (statuses as of 12/01/2022) Active Problems Problem Noted Date Supervision of [...] as of this encounter (statuses as of 12/01/2022) Resolved Problems Problem Noted Date Resolved Date [...] for 5+ years. She sees psychiatrist in [place] regularly and he approved this regimen for . Advised pt I would like her to taper off Ativan during . Continue Trazadone and Celexa for now. Obesity, Class II, BMI 35-39.9, isolated (see ac tual BMI) 11/18/2009 01/19/2020 Overview: Per Obesity Protocol, #19 depression 07/28/2019 documented as of this encounter (statuses as of 12/01/2022) Immunizations Name Administration Dates Next Due COVID-19 [...] BackerSavannah CRNP [address] [place] [address] 01/05/2023 Office Visit Maternal Medicine Krishna Palafox MD [address] [place] [address] 01/05/2023 Imaging Radiology 06/18/2023 Office Visit Family Medicine Colette Wagoner, [address] [place] [address] Pending Results Name Type Priority Associated Diagnoses Date /Time QNATAL ADVANCED (QUEST) Lab Routine Multigravida of advanced maternal age in second trimester 12/01/2022 1:58 PM EDT Health Maintenance Due Date Last Done Comments Hepatitis B (1 of 3 - 3-dose series) 1980 Depression Screening, Annual for Pts 12 and Over 06/20/2020 06/20/2019 Mammogram 12/18/2022 12/18/2021 Diabetes Screening 06/22/2025 06/22/2022, 0 06/08/2013, 03/23/2012, Additional history exists Lipid Panel 06/22/2027 06/22/2022, 07/2013, 11/19/2009 Pap Smear 10/08/2027 10/07/2022, 06/08, 03/24/2012, Additional history exists DTaP,Tdap,and Td Vaccines (4 - Td or Tdap) 11/16/2029 11/17/2019, 06/30/2018, 06/27/2008 COVID-19 Vaccine Completed 03/29/2022, 12/2021, 10/19/2020, Additional history exists Influenza Vaccine (FLU shot) Completed , 04/30/2021, 04/05/2020, Additional history exists Hepatitis C Screening Completed [...] of advanced maternal age in second trimester documented in this encounter Advance Directives Documents on File Type Date Recorded Patient Saute Chef Expl anation Power of Transportation Maintenance Worker 12/06/2019 POWER OF A TTORNEY Latest Code Status on File Code Status Date Activated Date Inactivated Comments Full Code 02/01/2020 3:24 AM 02/03/2020 6:07 PM This order reflects the patients wishes and were consensually agreed upon. Care Teams Supervisor Cutting Department Relationship Specialty Start Date End Date Colette Wagoner, [address] [place] [address] PCP - General Family Medicine 11/25/21 documented as of this encounter
--- OUTSIDE RECORDS SUMMARY | 2023-05-14 09:00 | External Medical Summary ---
Author Name Unknown Address Unknown Organization K01:LABORATORY [facility] [place] - [address] [facility] [address] Laboratory Report Ordering Provider Test Date Status KENN VERA 12/01/2022 13:48:22 Final Observation Date Value Abnormality Reference (Units ) Status Elizabeth glabrata DNA [Presence] in Vaginal fluid by VIRAJ with probe detection 12/01/2022 13:48:22 Negative Negative Final Elizabeth glabrata not detecte d by PCR. Elizabeth albicans DNA [Presen ce] in Vaginal fluid by VIRAJ with probe detection 12/01/2022 13:48:22 Negative Negative Final Elizabeth albicans not detecte d by PCR. Trichomonas vaginalis DNA [P resence] in Vaginal fluid by VIRAJ with probe detection 12/01/2022 13:48:22 Negative Negative Final Trichomonas vaginalis not de tected by PCR. Gardnerella vaginalis DNA [P resence] in Vaginal fluid by Probe with signal amplification 12/01/2022 13:48:22 Negative Negative Final Gardnerella vaginalis not de tected by PCR.

This test was developed and its performance characteristics determined by [facility]. It has not been cleared or approved by the U.S. Food and Drug Administration (FDA). FDA does not require this test to go through premarket FDA review. This test is used for clinical purposes. It should not be regarded as investigational or for research. This laboratory is certified under the Clinical Laboratory Improvement Amendments (CLIA) as qualified to perform high complexity clinical laboratory testing.

The validation of self-collected vaginal swabs for this assay was developed and performance characteristics determined by [facility]. The validation of alternate specimen types has not been cleared or approved by the U.S. Food and Drug Administration (FDA). It has been determined that such clearance or approval is not necessary.

null Performing Location LABORATORY [facility] - [address] [facility] [facility] [address]
--- OUTSIDE RECORDS SUMMARY | 2023-05-14 09:00 | External Medical Summary ---
Author Name Unknown Address Unknown Organization : Laboratory Report Ordering Provider Test Date Status KENN VERA 12/01/2022 13:58:08 Final Observation Date Value Abnormality Reference (Units ) Status NUMBER OF FETUSES? 12/01/2022 13:58:08 1 Final ADVANCED MATERNAL AGE? 12/01/2022 13:58:08 YES Final ABNORMAL KEILY? 12/01/2022 13:58:08 SEE BELOW Final YES- LOW FRACTION ON P RI ABNORMAL US? 12/01/2022 13:58:08 NOT GIVEN Final PERSONAL/FAM HISTORY? 12/01/2022 13:58:08 NOT GIVEN Final INTERPRETATION 12/01/2022 13:58:08 SEE BELOW Final Test Not Performed. Unable t o report due to low
fraction. This is a repeated low
fraction result for this patient. Low
fraction has been associated with an increased
risk of aneuploidy. If clinically indicated,
consider performing an invasive
diagnostic procedure. TRISOMY 21 (T21) 12/01/2022 13:58:08 SEE BELOW Final Test Not Performed. Unable t o report due to low
fraction. This is a repeated low
fraction result for this patient. Low
fraction has been associated with an increased
risk of aneuploidy. If clinically indicated,
consider performing an invasive
diagnostic procedure. TRISOMY 18 (T18) 12/01/2022 13:58:08 SEE BELOW Final Test Not Performed. Unable t o report due to low
fraction. This is a repeated low
fraction result for this patient. Low
fraction has been associated with an increased
risk of aneuploidy. If clinically indicated,
consider performing an invasive
diagnostic procedure. TRISOMY 13 (T13) 12/01/2022 13:58:08 SEE BELOW Final Test Not Performed. Unable t o report due to low
fraction. This is a repeated low
fraction result for this patient. Low
fraction has been associated with an increased
risk of aneuploidy. If clinically indicated,
consider performing an invasive
diagnostic procedure. Y CHROMOSOME 12/01/2022 13:58:08 SEE BELOW Final Test Not Performed. Unable t o report due to low
fraction. This is a repeated low
fraction result for this patient. Low
fraction has been associated with an increased
risk of aneuploidy. If clinically indicated,
consider performing an invasive
diagnostic procedure. Y CHR. INTERPRETATION 12/01/2022 13:58:08 SEE BELOW Final Test Not Performed. Unable t o report due to low
fraction. This is a repeated low
fraction result for this patient. Low
fraction has been associated with an increased
risk of aneuploidy. If clinically indicated,
consider performing an invasive
diagnostic procedure. SEX CHROMOSOME 12/01/2022 13:58:08 SEE BELOW Final Test Not Performed. Unable t o report due to low
fraction. This is a repeated low
fraction result for this patient. Low
fraction has been associated with an increased
risk of aneuploidy. If clinically indicated,
consider performing an invasive
diagnostic procedure. SEX CHROMOSOME INTERP 12/01/2022 13:58:08 SEE BELOW Final Test Not Performed. Unable t o report due to low
fraction. This is a repeated low
fraction result for this patient. Low
fraction has been associated with an increased
risk of aneuploidy. If clinically indicated,
consider performing an invasive
diagnostic procedure. MICRODELETION 12/01/2022 13:58:08 SEE BELOW Final Test Not Performed. Unable t o report due to low
fraction. This is a repeated low
fraction result for this patient. Low
fraction has been associated with an increased
risk of aneuploidy. If clinically indicated,
consider performing an invasive
diagnostic procedure. MICRODELETION INTERP 12/01/2022 13:58:08 SEE BELOW Final Test Not Performed. Unable t o report due to low
fraction. This is a repeated low
fraction result for this patient. Low
fraction has been associated with an increased
risk of aneuploidy. If clinically indicated,
consider performing an invasive
diagnostic procedure. GESTATIONAL AGE (IN WEEKS) 12/01/2022 13:58:08 SEE BELOW Final Test Not Performed. Unable t o report due to low
fraction. This is a repeated low
fraction result for this patient. Low
fraction has been associated with an increased
risk of aneuploidy. If clinically indicated,
consider performing an invasive
diagnostic procedure. GESTATIONAL AGE (IN DAYS) 12/01/2022 13:58:08 SEE BELOW Final Test Not Performed. Unable t o report due to low
fraction. This is a repeated low
fraction result for this patient. Low
fraction has been associated with an increased
risk of aneuploidy. If clinically indicated,
consider performing an invasive
diagnostic procedure. FRACTION 12/01/2022 13:58:08 SEE BELOW Final Test Not Performed. Unable t o report due to low
fraction. This is a repeated low
fraction result for this patient. Low
fraction has been associated with an increased
risk of aneuploidy. If clinically indicated,
consider performing an invasive
diagnostic procedure. LABORATORY COMMENTS 12/01/2022 13:58:08 SEE BELOW Final Test Not Performed. Unable t o report due to low
fraction. This is a repeated low
fraction result for this patient. Low
fraction has been associated with an increased
risk of aneuploidy. If clinically indicated,
consider performing an invasive
diagnostic procedure. LIMITATIONS 12/01/2022 13:58:08 SEE BELOW Final Test Not Performed. Unable t o report due to low
fraction. This is a repeated low
fraction result for this patient. Low
fraction has been associated with an increased
risk of aneuploidy. If clinically indicated,
consider performing an invasive
diagnostic procedure. SPECIFICATIONS 12/01/2022 13:58:08 SEE BELOW Final Test Not Performed. Unable t o report due to low
fraction. This is a repeated low
fraction result for this patient. Low
fraction has been associated with an increased
risk of aneuploidy. If clinically indicated,
consider performing an invasive
diagnostic procedure. METHODOLOGY 12/01/2022 13:58:08 SEE BELOW Final Test Not Performed. Unable t o report due to low
fraction. This is a repeated low
fraction result for this patient. Low
fraction has been associated with an increased
risk of aneuploidy. If clinically indicated,
consider performing an invasive
diagnostic procedure.
This test was developed and its analytical
performance characteristics have been determined
by [employer] [facility]. It has not been cleared or approved by
FDA. This assay has been validated pursuant to the
CLIA regulations and is used for clinical
purposes.
Test performed by [facility]
[id number],
[place] [address]

Rn Referral: Deidre Valentino MD,PHD,FELIBERTO
Test Reported by [facility],
[facility],
[address] [place], [place]
Toño Amanda M.D., Ph.D., Director of Laboratories
[phone], [facility] [id number] Performing Location
--- OUTSIDE RECORDS SUMMARY | 2023-05-14 09:00 | External Medical Summary | Summary of Care ---
Author Name Unknown Organization [facility] Address [address] [place] [address] Phone [phone] Care Team Providers Care Juvenile Detention Officer Name Role Phone Colette Wagoner DO Primary Care Provider Reason for Visit * Reason Comments Return Visit Encounter Details Date Type Department Care Team Description 12/01/2022 [facility] [address] [place] [address] Lillie Buchanan CRNP [address] [place] [address] Multigravida of advanced maternal age in second trimester*; Rh negative status during in second trimester; Acute vaginitis Allergies No known active allergiesdocumented as of [...] for 5+ years. She sees psychiatrist in [place] regularly and he approved this regimen for [...] Sign Reading Time Taken Comments Blood Pressure 110/68 12/01/2022 1:22 PM EDT Pulse - - Temperature - - Respiratory Rate - - Oxygen Saturation - - Inhaled Oxygen Concentration - - Weight 75.7 kg (166 lb 12.8 oz) 12/01/2022 1:22 PM EDT Height 165.1 cm (5' 5") 12/01/2022 1:22 PM EDT Body Mass Index 27.76 12/01/2022 1:22 PM EDT documented in this encounter Progress Notes * CELY Coley - 12/01/2022 1:46 PM EDT 14w6d Wondering if she has a yeast infection. Started a few days ago with vaginal itching and a greenish discharge. Speculum exam shows a mucus like discharge, not obvious for yeast. Will send culture and await results before treating. Had NIPT done at 10 weeks, showed low fraction. Would like to repeat this today. No other concerns. Following with MFM. CELY Coley documented in this encounter Nursing Notes * ADAM Lawrence - 12/01/2022 1:26 PM EDT 14w6d Pt is having abnormal vaginal discharge, itching, thinks she may have yeast infection. Had some pain in left ovary, pain 9/10, was gone by the next day. Pt denies any other concerns. documented in this encounter Plan of Treatment Upcoming Encounters Date Type Specialty Care Team Description 01/01/2023 Office Visit Gynecology Obstetrics Backer, CELY Kamara [address] [place] [address] 01/05/2023 Office Visit Maternal Medicine BringKrishna schultz MD [address] [facility] [address] 01/05/2023 Imaging Radiology 06/18/2023 Office Visit Family Medicine Colette Wagoner, DO [address] [place] [address] Pending Results Name Type Priority Associated Diagnoses Date /Time QNATAL ADVANCED (QUEST) Lab Routine Multigravida of advanced maternal age in second trimester 12/01/2022 1:58 PM EDT VAGINOSIS PANEL, PCR Lab Routine Acute vaginitis 12/01/2022 1:48 PM EDT Scheduled Orders Name Type Priority Associated Diagnoses Orde r Schedule QNATAL ADVANCED (QUEST) Lab Routine Multigravida of advanced maternal age in second trimester Expected: 12/01/2022 (Approximate), Expires: 12/02/2023 Health Maintenance Due Date Last Done Comments Hepatitis B (1 of 3 - 3-dose series) 1981 Depression Screening, Annual for Pts 12 and Over 06/20/2020 06/20/2019 Mammogram 12/18/2022 12/18/2021 Diabetes Screening 06/22/2025 06/22/2022, 0 06/08/2013, 03/23/2012, Additional history exists Lipid Panel 06/22/2027 06/22/2022, 0 07/2013, 11/19/2009 Pap Smear 10/08/2027 10/07/2022, 06/08, [...] Rh negative status during in second trimester Acute vaginitis Vaginitis and vulvovaginitis, unspecified documented in this encounter Advance Directives Documents on File Type Date Recorded Patient Nut And Bolt Assembler Expl anation Power of Freight Elevator Erector 12/06/2019 POWER OF A TTORNEY Latest Code Status on File Code Status Date Activated Date Inactivated Comments Full Code 02/01/2020 3:24 AM 02/03/2020 6:07 PM This order reflects the patients wishes and were consensually agreed upon. Care Teams Juvenile Detention Officer Relationship Specialty Start Date End Date Colette Wagoner DO [address] [place] [address] PCP - General Family Medicine 11/25/21 documented as of this encounter
--- OUTSIDE RECORDS SUMMARY | 2023-05-14 09:00 | External Medical Summary | Summary of Care ---
Author Name Unknown Organization [facility] Address [address] [place] [address] Phone [phone] Care Team Providers Care Rack Loader Name Role Phone Rizwana Colette Rowley DO Primary Care Provider Reason for Visit * Reason Onset Date Comments Abnormal Test Results 11/04/2022 Encounter Details Date Type Department Care Team Description 11/04/2022 Telephone Gynecology/Obstetrics [facility] [address] [place] [address] Lilile Buchanan CRNP [address] [place] [address] Abnormal Test Results Allergies No known active allergiesdocumented [...] for 5+ years. She sees psychiatrist in [place] regularly and he approved this regimen for [...] encounter Miscellaneous Notes * Telephone Encounter - BREN Alvarado - 11/04/2022 10:11 AM EDT Apt scheduled; pt aware * Telephone Encounter - Kalyani Penn RN - 11/04/2022 9:51 AM EDT Patient called and made aware. Patient verbalized understanding. Instructions given for glucose testing. Please contact patient to schedule 3 hr gtt. * Telephone Encounter - CELY Coley - 11/04/2022 8:01 AM EDT Please notify pt that glucola elevated (138). Needs 3hr GTT. Orders placed. documented in this encounter Plan of Treatment Upcoming Encounters Date Type Specialty Care Team Description 12/01/2022 Office Visit Gynecology Obstetrics Lillie Buchanan CRNP [address] [place] [address] 01/05/2023 Office Visit Maternal Medicine Krishna Palafox MD [address] [place] [address] 01/05/2023 Imaging Radiology 06/18/2023 Office Visit Family Medicine Colette Wagoner, DO [address] [place] [address] Health Maintenance Due Date Last Done Comments [...] of this encounter Visit Diagnoses Diagnosis Abnormal glucose tolerance in mother complicating - Primary Abnormal maternal glucose tolerance, complicating , childbirth, or the puerperium, unspecified as to episode of care documented in this encounter Advance Directives Documents on File Type Date Recorded Patient Store Warehouse Associate Expl anation Power of Field Crop Farm Worker 12/06/2019 POWER OF A TTORNEY Latest Code Status on File Code Status Date Activated Date Inactivated Comments Full Code 02/01/2020 3:24 AM 02/03/2020 6:07 PM This order reflects the patients wishes and were consensually agreed upon. Care Teams Rack Loader Relationship Specialty Start Date End Date Colette Wagoner DO [address] [place] [address] PCP - General Family Medicine 11/25/21 documented as of this encounter
--- OUTSIDE RECORDS SUMMARY | 2023-05-14 09:01 | External Medical Summary | Summary of Care ---
Author Name Unknown Organization [facility] Address [address] [place] [address] Phone [phone] Care Team Providers Care Registered Nurse Renal Name Role Phone Colette Wagoner DO Primary Care Provider Encounter Details Date Type Department Care Team Description 11/17/2022 Office Visit 3D Artist OB Maternal [facility] Lisa Thorne [address] [place] [address] [address] [place] [address] Krishna Palafox MD [address], [place] [id number] Multigravida of advanced maternal age in first trimester* Allergies No known active allergiesdocumented as of this encounter (statuses as of 11/17/2022) Medications Medication Sig Dispensed Refills Start Date [...] as of this encounter (statuses as of 11/17/2022) Active Problems Problem Noted Date Supervision of high risk in fi rst trimester 10/14/2022 AMA (advanced maternal age) [...] as of this encounter (statuses as of 11/17/2022) Resolved Problems Problem Noted Date Resolved Date [...] for 5+ years. She sees psychiatrist in [place] regularly and he approved this regimen for . Advised pt I would like her to taper off Ativan during . Continue Trazadone and Celexa for now. Obesity, Class II, BMI 35-39.9, isolated (see ac [facility] BMI) 11/18/2009 01/19/2020 Overview: Per Obesity Protocol, #19 depression 07/28/2019 documented as of this encounter (statuses as of 11/17/2022) Immunizations Name Administration Dates Next Due COVID-19 [...] Progress Notes * Krishna Palafox MD - 11/17/2022 3:08 PM EDT MATERNAL MEDICINE VISIT Eloisa Wilson is at 12w6d who presents to [facility] for an ultrasound and follow-up of her high risk . The patient is currently 12 weeks and 6 days gestation with advanced maternal age. She comes in [place] evaluation of anatomy. She is being seen today by Maternal- Medicine for the following reasons: Problem List Items Addressed This Visit AMA (advanced maternal age) multigravida 35+ - Primary I reviewed the ultrasound. The anatomy that was visualized is appropriate for the gestationalage. We will bring back at 19 weeks of gestation for an evaluation of anatomy. Relevant Orders [facility] US MATERNAL 1ST FETUS [facility] US PREG FOLLOW UP EACH FETUS Thank you for allowing us to participate in the care of this patient. Please call with any questions. Krishna Palafox MD 11/17/2022 3:08 PM documented in this encounter Miscellaneous Notes * Assessment & Plan Note - Krishna Palafox MD - 11/17/2022 3:09 PM EDT Associated Problem(s): AMA (advanced maternal age) multigravida 35+ I reviewed the ultrasound. The anatomy that was visualized is appropriate for the gestationalage. We will bring back at 19 weeks of gestation for an evaluation of anatomy. documented in this encounter Plan of Treatment Upcoming Encounters Date Type Specialty Care Team Description 12/01/2022 Office Visit Gynecology Obstetrics Lillie Buchanan CRNP [address] [place] [address] 01/05/2023 Office Visit Maternal Medicine Krishna Palafox MD [address] [place] [address] 01/05/2023 Imaging Radiology 06/18/2023 Office Visit Family Medicine Colette Wagoner, [address] [place] [address] Scheduled Orders Name Type Priority Associated Diagnoses Orde r Schedule [facility] US MATERNAL 1ST FETUS Medical Imaging Routine Multigravida of advanced maternal age in first trimester 1 Occurrences starting 11/17/2022 until 02/17/2023 MFM US PREG FOLLOW UP EACH FETUS Medical Imaging Routine Multigravida of advanced maternal age in first trimester 4 Occurrences starting 11/17/2022 until 05/19/2023 Health Maintenance Due Date Last Done Comments [...] Diagnosis Multigravida of advanced maternal age in first trimester- Primary documented in this encounter Advance Directives Documents on File Type Date Recorded Patient General Farmworker Expl anation Power of Department Clerk 12/06/2019 POWER OF A TTORNEY Latest Code Status on File Code Status Date Activated Date Inactivated Comments Full Code 02/01/2020 3:24 AM 02/03/2020 6:07 PM This order reflects the patients wishes and were consensually agreed upon. Care Teams Registered Nurse Renal Relationship Specialty Start Date End Date Colette Wagoner DO [address] [place] [address] PCP - General Family Medicine 11/25/21 documented as of this encounter
--- OUTSIDE RECORDS SUMMARY | 2023-05-14 09:01 | External Medical Summary | Summary of Care ---
Author Name Unknown Organization [facility] Address [address] [place] [address] Phone [phone] Care Team Providers Care Maintenance Technician 3Rd Shift Name Role Phone Colette Wagoner DO Primary Care Provider Encounter Details Date Type Department Care Team Description 11/17/2022 Office Visit Site Worker OB Maternal Medicine [facility] Lisa Thorne [address] [place] [address] [address] [place] [address] Krishna Palafox MD [address] [place], [place] [id number] Multigravida of advanced maternal age in first [...] for 5+ years. She sees psychiatrist in [place] regularly and he approved this regimen for . Advised pt I would like her to taper off Ativan during . Continue Trazadone and Celexa for now. Obesity, Class II, BMI 35-39.9, isolated (see [facility] BMI) 11/18/2009 01/19/2020 Overview: Per Obesity Protocol, [...] Wilson is at 12w6d who presents to [facility] for an ultrasound and follow-up of her [...] for an evaluation of anatomy. Relevant Orders [facility] US MATERNAL 1ST FETUS [facility] US PREG FOLLOW UP EACH FETUS Thank [...] Buchanan CRNP [address] [place] [address] 01/05/2023 Office Visit Maternal Medicine Krishna Palafox MD [address] [place] [address] 01/05/2023 Imaging Radiology 06/18/2023 Office Visit Family Medicine Colette Wagoner, [address] [place] [address] Scheduled Orders Name Type Priority Associated Diagnoses [...] Documents on File Type Date Recorded Patient Vegetable Cook Expl anation Power of Medical Assembler 12/06/2019 POWER OF A TTORNEY Latest Code Status on File Code Status Date Activated Date Inactivated Comments Full Code 02/01/2020 3:24 AM 02/03/2020 6:07 PM This order reflects the patients wishes and were consensually agreed upon. Care Teams Maintenance Technician 3Rd Shift Relationship Specialty Start Date End Date Colette Wagoner DO [address] [place] [address] PCP - General Family Medicine 11/25/21 documented as of this encounter
[2023-05-14 09:02] LABS: Albumin Globulin Ratio 1.2 (0.9-2); Albumin Level 3.4 gm/dl (3.4-5.0); BUN Creatinine Ratio 13.6 (10-20); Bilirubin,Total 0.6 mg/dl (0.2-1.0); Calcium 8.9 mg/dl (8.6-10.3); Creatinine Clr Calc Pharmacy 139.3 ml/min; Est GFR (Non-African American) 113.1 ml/min; Globulin 2.9 gm/dl (2.5-4.0); Potassium 3.9 mmol/L (3.5-5.1); Total Protein 6.3 gm/dl (6.0-8.3)
--- NOTE | 2023-05-14 10:22 | Delivery Summary ---
Vaginal Delivery Summary Date of Service May 14, 2023 Vaginal Delivery Summary live female over intact perineum FAHAD with delayed cord clamping and Apgars 7/8 weight pending. Cord blood obtained followed by spontaneous delivery of intact placenta. First degree tear repaired with 3/0 Vicryl and 1% lidocaine infiltrated as local anesthesia. EBL 150 ml. Final sponge, needle and instrument count are correct. Mom and baby stable.
[2023-05-14] MEDS: IBUPROFEN 600 MG TAB PO PRN ×2 (11:57→16:05)
[2023-05-14] MEDS ORDERED: BENZOCAINE 20% SPRY 85 APPLN/85 GM CAN EXT ONE (14:19)
[2023-05-14] MEDS ORDERED: BENZOCAINE 20% SPRY 85 APPLN/85 GM CAN EXT PRN (14:45)
[2023-05-14] MEDS ORDERED: HYDROCORTISONE ACETATE 25 MG SUPP PR PRN (14:45)
[2023-05-14] MEDS ORDERED: DIPHTHERIA/TETANUS/PERTUSSIS Vaccine (Tdap, Age 7+yrs) 0.5mL SYR/VL IM ONE (14:45)
[2023-05-14] MEDS ORDERED: ACETAMINOPHEN 325 MG TAB PO PRN (14:45)
[2023-05-14] MEDS ORDERED: bisacodyL 10 MG SUPP PR PRN (14:45)
[2023-05-14] MEDS: METHOCARBAMOL 500 MG TABLET PO SCH (19:59)
[2023-05-14] MEDS: OMEGA-3 (PURIFIED FISH OIL) 1 GM CAP PO SCH (20:46)
[2023-05-14] MEDS: DOCUSATE SODIUM 100 MG CAP PO SCH (20:47)
[2023-05-14] MEDS ORDERED: CITALOPRAM 40 MG TAB PO SCH (21:00)
[2023-05-14] MEDS ORDERED: traZODone HCL 50 MG TAB PO SCH (21:00)
[2023-05-14] MEDS ORDERED: ECHINACEA PO SCH (21:00)
[2023-05-14] MEDS ORDERED: ADVANCED PROBIOTIC 1250 MG CAPSULE PO SCH (21:00)
[2023-05-14] MEDS ORDERED: POLYETHYLENE (MIRALAX) 17 GM PACK PO SCH (21:00)
[2023-05-15] MEDS: IBUPROFEN 600 MG TAB PO PRN ×2 (00:06→05:23)
[2023-05-15 06:57] LABS: Hematocrit (blood only) 30.9 % (37.0-47.0); Hemoglobin 10.6 g/dl (12.0-16.0); Mean Corpuscular Hemoglobin 31.7 pg (25.0-34.0); Mean Corpuscular Hgb Conc 34.3 g/dL (32.0-36.0); Mean Corpuscular Volume 92.5 fL (80.0-100.0); Mean Platelet Volume 9.8 fL (9.4-12.4); Platelet Count 151 K/uL (130-400); RDW Coefficient of Variation 12.9 % (11.5-14.5); RDW Standard Deviation 43.1 fL (36.4-46.3); Red Blood Count 3.34 M/uL (4.20-5.40); White Blood Count 12.94 K/ul (4.8-10.8)
[2023-05-15] MEDS ORDERED: PRENATAL VITAMIN 1 TAB PO SCH (08:00)
[2023-05-15] MEDS: DOCUSATE SODIUM 100 MG CAP PO SCH (08:21)
[2023-05-15] MEDS: METHOCARBAMOL 500 MG TABLET PO SCH (08:30)
--- NOTE | 2023-05-15 08:46 | Obstetrical Progress Note ---
Date of Service May 15, 2023 Assessment & Plan Admission and Anticipated Discharge Date Admission Date: May 14, 2023 Subjective Patient is seen and examined. She feels well, no complaints. Ambulating without dizziness Voiding without difficulty Tolerating regular diet with out N&V Bleeding is minimal No fever/ chills/ CP/ SOB/ N&V/ Leg pain Breast feeding without problems Vital Signs Temp Pulse Resp BP Pulse Ox O2 Del Method 05/15/23 07:25 36.5 C 81 18 128/82 97 Room Air 05/15/23 03:05 36.8 C 79 18 118/75 98 Room Air 05/15/23 00:25 36.7 C 83 18 127/78 98 Room Air Lab Results 05/14/23 05/15/23 Range/Units 08:29 06:29 WBC 10.92 H 12.94 H (4.8-10.8) K/ul RBC 4.08 L 3.34 L (4.20-5.40) M/uL Hgb 12.8 10.6 L (12.0-16.0) g/dl Hct 36.2 L 30.9 L (37.0-47.0) % MCV 88.7 92.5 (80.0-100.0) fL MCH 31.4 31.7 (25.0-34.0) pg MCHC 35.4 34.3 (32.0-36.0) g/dL RDW Std Deviation 41.6 43.1 (36.4-46.3) fL RDW Coeff of Darryl 12.8 12.9 (11.5-14.5) % Plt Count 169 151 (130-400) K/uL MPV 10.1 9.8 (9.4-12.4) fL Sodium 136 (136-145) mmol/L Potassium 3.9 (3.5-5.1) mmol/L Chloride 106 (98-107) mmol/L Carbon Dioxide 22 (21-32) mmol/L Anion Gap 8 (3-11) BUN 8 (6-23) mg/dl Creatinine 0.59 L (0.6-1.2) mg/dl Est Cr Clr Drug Dosing 139.3 ml/min Est GFR ( Amer) 131.0 ml/min Est GFR (Non-Af Amer) 113.1 ml/min BUN/Creatinine Ratio 13.6 (10-20) Glucose 82 (70-99(Fasting)) mg/dl Calcium 8.9 (8.6-10.3) mg/dl Total Bilirubin 0.6 (0.2-1.0) mg/dl AST 19 (13-39) U/L ALT 9 (7-52) U/L Alkaline Phosphatase 157 H (34-104) U/L Total Protein 6.3 (6.0-8.3) gm/dl Albumin 3.4 (3.4-5.0) gm/dl Globulin 2.9 (2.5-4.0) gm/dl Albumin/Globulin Ratio 1.2 (0.9-2) PE: General: Alert, orientedx3, NAD Abd: soft, NT, fundus firm, below Umbilicus Perineum intact, Lochia rubra minimal Ext; NT, no edema AP: 43 yo s/p , ppd# 1 VSS Afebrile doing well Continue routine care All questions were answered Desires D/C today Results & Data Vital Signs (Past 12 Hours) Vital Signs Temp Pulse Resp BP Pulse Ox O2 Del Method 05/15/23 07:25 36.5 C 81 18 128/82 97 Room Air 05/15/23 03:05 36.8 C 79 18 118/75 98 Room Air 05/15/23 00:25 36.7 C 83 18 127/78 98 Room Air
[2023-05-15] MEDS ORDERED: VITAMIN B COMPLEX TAB PO SCH (09:00)
[2023-05-15] MEDS ORDERED: MULTIVITAMIN TAB PO SCH (09:00)
[2023-05-15] MEDS: OMEGA-3 (PURIFIED FISH OIL) 1 GM CAP PO SCH (10:26)
[2023-05-15] MEDS ORDERED: bisacodyL 5 MG TABEC PO SCH (20:00)
== END 2023-05-15 13:40 | disposition home health service (06) | DRG 807 ==
LOC: OPB 08:08 → 4S1 08:14 → 4E2 12:13